=== PATIENT | female | born 1955 | race African-American/Black ===

== ENCOUNTER → 2018-04-13 | Day surgery (SDC) | payer OTHER ==
--- NOTE | 2018-04-16 14:55 | PATH ---
Surgical Pathology Report Patient Name: CAYETANO ALFARO [facility]. Rec. #: [id number] /Age/Gender: 1955 (Age: 62) / F Account: [id number] Location: [facility] RADIOLOGY U Taken: 04/13/2018 Received: 04/13/2018 Reported: 04/16/2018 Physicians: Mark Langford M.D. Specimen(s) Received RIGHT BREAST 1N2 CORE BIOPSY Clinical History Non-palpable lesion Ultrasound findings: Suspicious Final Diagnosis BREAST, RIGHT, 1N2, CORE BIOPSY: BENIGN BREAST TISSUE SHOWING FIBROCYSTIC CHANGES INCLUDING CYSTIC APOCRINE METAPLASIA, STROMAL FIBROSIS AND SCLEROSING ADENOSIS WITH FEW ASSOCIATED CALCIFICATIONS. Electronically Signed Regla Vazquez M.D. Gross Description Received in formalin, labeled "right breast core biopsy 1N2" are six cores of light interiano and yellow-interiano tissue, ranging from 1-1.5 cm in length with a diameter of 0.3 cm. Entirely submitted in two cassettes. Time to formalin fixation: > 1 minute Total formalin fixation time: Approximately 52 hours AE/04/13/2018 ebram/04/13/2018
--- NOTE | 2018-04-16 23:31 | OP ---
DATE OF OPERATION: 04/13/2018 PREOPERATIVE DIAGNOSIS: Right breast mass, 1 o'clock, 2 cm from the nipple. POSTOPERATIVE DIAGNOSIS: Right breast mass, 1 o'clock, 2 cm from the nipple. PROCEDURE: Right ultrasound guided core biopsy with clip placement. ANESTHESIA: Local. ATTENDING SURGEON: Timothy Guerra M.D. ESTIMATED BLOOD LOSS: Minimal. COMPLICATIONS: None. DESCRIPTION OF PROCEDURE: Patient was made aware of the risks and benefits of the procedure and consented. She was placed in supine position. Then under sterile conditions with 1% lidocaine for local anesthesia, a small maylin was made in the skin. Using a 10 gauge suction biopsy device, via lateral approach, under ultrasound guidance, multiple cores were obtained and submitted to pathology. Likewise under ultrasound guidance a bowtie clip was placed into the biopsy region. Well tolerated by the patient. Steri-Strips and a sterile bandage were applied. Will contact her with results. TIMOTHY GUERRA M.D. [id number]
== END | disposition home or self-care (01) ==
LOC: FRADUS-SUR 14:40
PROVIDERS: ATTEND Surgery
PROC: 0HBT3ZX Excision of Right Breast, Percutaneous Approach, Diagnostic (ICD-10-PCS; principal; 2018-04-13)
DX: N60.11 Diffuse cystic mastopathy of right breast (principal); N60.21 Fibroadenosis of right breast
CPT/HCPCS: 19083; 87899; 88305-TC; A4648

== ENCOUNTER 2018-09-06 05:25 | Day surgery (SDC) | payer OTHER ==
[2018-08-30 12:25] VITALS: BMI 21.2
[2018-09-06] MEDS ORDERED: MIDAZOLAM HCL 2 MG/2 ML SINGLE DOSE VIAL ONE (14:11)
[2018-09-06] MEDS ORDERED: LIDOCAINE HCL/PF 2% SDV 5ML VIAL ONE (14:11)
[2018-09-06] MEDS ORDERED: PROPOFOL 20 ML ONE (14:11)
--- NOTE | 2018-09-06 14:48 | HP ---
Admitting History and Physical - Admission Chief Complaint: Abnormal vaginal bleeding History of Present Illness: 63 yo Para 0, with personal h/o breast cancer, is pre op for D&C hysteroscopy. History Source: Patient Limitations to Obtaining History: No Limitations - Past Medical History Cardiovascular: Yes: HTN (fluctuating) Reproductive: Yes: Postmenopausal ...: No ...Para: 0 - Past Surgical History Past Surgical History: Yes: None - Smoking History Smoking history: Current every day smoker Have you smoked in the past 12 months: Yes Aproximately how many cigarettes per day: 5 - Alcohol/Substance Use Hx Alcohol Use: Yes (OCCASIONAL) Home Medications - Allergies Allergies/Adverse Reactions: Allergies Allergy/AdvReac Type Severity Reaction Status Date / Time No Known Allergies Allergy Verified 09/06/18 14:02 - Home Medications Home Medications: Ambulatory Orders Amlodipine Besylate [Norvasc -] 5 mg PO ASDIR 08/18/14 Cholecalciferol (Vitamin D3) [Vitamin D3 -] 400 unit PO DAILY 08/30/18 Gabapentin 600 mg PO HS 08/30/18 Ibuprofen 200 mg PO PRN PRN 08/30/18 Multivitamin [Multiple Vitamins] 1 each PO DAILY 08/30/18 Tamoxifen Citrate 20 mg PO DAILY 08/30/18 Family Disease History - Family Disease History Family History: Unremarkable Review of Systems - Review of Systems Constitutional: reports: No Symptoms Eyes: reports: No Symptoms HENT: reports: No Symptoms Neck: reports: No Symptoms Cardiovascular: reports: No Symptoms Respiratory: reports: No Symptoms Gastrointestinal: reports: No Symptoms Genitourinary: reports: No Symptoms Breasts: reports: No Symptoms Reported Musculoskeletal: reports: No Symptoms Integumentary: reports: No Symptoms Neurological: reports: No Symptoms Endocrine: reports: No Symptoms Hematology/Lymphatic: reports: No Symptoms Psychiatric: reports: No Symptoms Pain Intensity: 0 Physical Examination Vital Signs: Vital Signs Temperature 98.2 F 09/06/18 13:50 Pulse Rate 88 09/06/18 13:50 Respiratory Rate 18 09/06/18 13:50 Blood Pressure 106/63 09/06/18 13:50 O2 Sat by Pulse Oximetry (%) 100 09/06/18 13:50 Constitutional: Yes: Well Nourished Eyes: Yes: Conjunctiva Clear HENT: Yes: Atraumatic Neck: Yes: Supple Cardiovascular: Yes: Regular Rate and Rhythm Respiratory: Yes: Regular Gastrointestinal: Yes: Normal Bowel Sounds Breast(s): Yes: WNL Musculoskeletal: Yes: WNL Extremities: Yes: WNL Neurological: Yes: Alert, Oriented ...Motor Strength: WNL Psychiatric: Yes: Alert, Oriented Problem List - Problems (1) Post-menopausal bleeding Code(s): N95.0 - POSTMENOPAUSAL BLEEDING Assessment/Plan Postmenopausal bleeding Pre op for D&C Hysteroscopy Consent signed Anesthesia to see patient
--- NOTE | 2018-09-06 15:11 | OP ---
Operative Note - Note: Operative Date: 09/06/18 Pre-Operative Diagnosis: Endometrial polyp Operation: D&C Hysteroscopy Findings: Endometrial polyp Post-Operative Diagnosis: Same as Pre-op Surgeon: Nevaeh Villanueva Anesthesia: General Specimens Removed: Endometrial curettings Estimated Blood Loss (mls): 3
[2018-09-06] MEDS ORDERED: ONDANSETRON 4 MG/2 ML VIAL IVPUSH PRN (15:34)
[2018-09-06] MEDS ORDERED: oxyCODONE HCL 5 MG TABLET PO PRN (15:34)
[2018-09-06] MEDS ORDERED: LACTATED RINGERS SOLUTION 1,000 ML IV SCH (15:45)
--- NOTE | 2018-09-06 16:01 | OP ---
DATE OF OPERATION: 09/06/2018 PREOPERATIVE DIAGNOSIS: Postmenopausal bleeding with personal history of breast cancer and on tamoxifen. POSTOPERATIVE DIAGNOSIS: Postmenopausal bleeding with personal history of breast cancer and on tamoxifen. PROCEDURE: Dilation and curettage hysteroscopy. SURGEON: Nevaeh Villanueva MD ANESTHESIA: General. COMPLICATIONS: None. ESTIMATED BLOOD LOSS: Less than 5 mL. PROCEDURE: Patient was taken to the operating room, where general anesthesia was administered. Patient was then placed in lithotomy position. She was then prepped and draped in proper sterile fashion. A weighted speculum was placed in the vagina. The anterior lip of the cervix was grasped with a single-tooth tenaculum. Then the cervical os, which was found to be stenosed, was entered using the Rodriguez dilators, and then the 5-mm hysteroscope was then gently introduced into the uterine cavity. The cavity was visualized. Both ostia were visualized and there was evidence of some polyp on the posterior wall of the uterus. Then the hysteroscope was removed. A sharp curettage was then performed, and a second look with the hysteroscope was then undertaken. Then the instruments were removed. The patient was taken out of lithotomy position. She was taken to PACU in stable condition. PATHOLOGY: Endometrial curettings. Mark LESLIE/[id number] MTDD
[2018-09-06 17:55] VITALS: BP 127/72; PULSE 61; TEMP 97.2
--- NOTE | 2018-09-10 16:19 | PATH ---
Surgical Pathology Report Patient Name: CAYETANO ALFARO [facility]. Rec. #: [id number] /Age/Gender: 1955 (Age: 63) / F Account: [id number] Location: [facility] SURGICAL Taken: 09/06/2018 Received: 09/07/2018 Reported: 09/10/2018 Physicians: Nevaeh Villanueva M.D. Specimen(s) Received ENDOMETRIAL CURETTINGS Clinical History Postmenopausal bleeding Final Diagnosis ENDOMETRIAL CURETTINGS, DILATION AND CURETTAGE: POLYPOID FRAGMENTS OF ENDOMETRIUM AND HEMORRHAGIC STROMA SUGGESTIVE OF ENDOMETRIAL POLYP, ATROPHIC ENDOMETRIUM, ENDOCERVIX WITH CHRONIC INFLAMMATION AND MICROGLANDULAR HYPERPLASIA, AND BENIGN CERVICAL SQUAMOUS MUCOSA. Electronically Signed Adelina Lopez M.D. Gross Description Received in formalin labeled "endometrial curettings," is a 0.8 x 0.7 x 0.1 cm aggregate of interiano-brown soft tissue fragments. The formalin is filtered and the specimen is entirely submitted in one cassette. /09/07/2018 [facility]09/07/2018
== END 2018-09-06 17:30 | disposition home or self-care (01) ==
LOC: JASU-SURG 05:25
PROVIDERS: ATTEND Obstetrics & Gynecology
PROC: 0UDB7ZX Extraction of Endometrium, Via Natural or Artificial Opening, Diagnostic (ICD-10-PCS; principal; 2018-09-06 14:30)
PROC: 0UJD8ZZ Inspection of Uterus and Cervix, Via Natural or Artificial Opening Endoscopic (ICD-10-PCS; 2018-09-06 14:30)
DX: N95.0 Postmenopausal bleeding (principal); Z85.3 Personal history of malignant neoplasm of breast
CPT/HCPCS: 88305-TC; 94760

== ENCOUNTER 2020-04-18 20:40 | Inpatient (IN) | payer OTHER ==
--- NOTE | 2020-04-18 21:14 | PDOC ---
History of Present Illness - General Chief Complaint: Weakness Stated Complaint: POSSIBLE COVID-19 Time Seen by Provider: 04/18/20 21:13 - History of Present Illness Initial Comments: 64 YOF h/o breast cancer (on tamoxifen) presents w/ profound fatigue, shortness of breath, nausea, and abdominal pain of one month duration. Patient reports symptoms have been worsening over last month, she is unable to perform activities of daily living d/t fatigue. Also reports an intermittent cough and that food tastes unusual to her and her appetite is decreased. She denies CP, fever, chills, recent travel, or sick contacts. Constitutional: No Weight Change, No Fever, No Chills, No Night Sweats, + Fatigue, No Malaise ENT/Mouth: No Hearing Changes, No Ear Pain, No Nasal Congestion, No Sinus Pain, No Hoarseness, No sore throat, No Rhinorrhea, No Swallowing Difficulty Eyes: No Eye Pain, No Swelling, No Redness, No Foreign Body, No Discharge, No Vision Changes Cardiovascular: No Chest Pain, + SOB, No PND, No Dyspnea on Exertion, No Orthopnea, No Claudication, No Edema, No Palpitations Respiratory: + Cough, No Sputum, No Wheezing, No Smoke Exposure, No Dyspnea Gastrointestinal: + Nausea, No Vomiting, + Diarrhea, No Constipation, + Pain, No Heartburn, No Anorexia, No Dysphagia, No Hematochezia, No Melena, No Flatulence, No Jaundice Genitourinary: No Dysmenorrhea, No DUB, No Dyspareunia, No Dysuria, No Urinary Frequency, No Hematuria, No Urinary Incontinence, No Urgency, No Flank Pain, No Urinary Flow Changes, No Hesitancy Musculoskeletal: No Arthralgias, No Myalgias, No Joint Swelling, No Joint Stiffness, No Back Pain, No Neck Pain, No Injury History Skin: No Skin Lesions, No Pruritis, No Hair Changes, No Breast/Skin Changes, No Nipple Discharge Neuro: No Weakness, No Numbness, No Paresthesias, No Loss of Consciousness, No Syncope, No Dizziness, No Headache, No Coordination Changes, No Recent Falls Psych: No Anxiety/Panic, No Depression, No Insomnia, No Personality Changes, No Delusions, No Rumination, No SI/HI/AH/VH, No Social Issues, No Memory Changes, No Violence/Abuse Hx., No Eating Concerns Heme/Lymph: No Bruising, No Bleeding, No Transfusions History, No Lymphadenopathy Endocrine: No Polyuria, No Polydipsia, No Temperature Intolerance Past History - Medical History Allergies/Adverse Reactions: Allergies Allergy/AdvReac Type Severity Reaction Status Date / Time No Known Allergies Allergy Verified 04/18/20 21:01 Home Medications: Ambulatory Orders Amlodipine Besylate [Norvasc -] 5 mg PO ASDIR 08/18/14 Gabapentin 600 mg PO HS 08/30/18 Tamoxifen Citrate 20 mg PO DAILY 08/30/18 Anemia: No Asthma: No Cancer: Yes (breast, LEFT) Cardiac Disorders: No CVA: No COPD: No CHF: No Dementia: No Diabetes: No GI Disorders: No Disorders: No HTN: Yes Hypercholesterolemia: No Liver Disease: No Seizures: No Thyroid Disease: No - Surgical History Abdominal Surgery: No Appendectomy: No Cardiac Surgery: No Cholecystectomy: No Lung Surgery: No Neurologic Surgery: No Orthopedic Surgery: No - Reproductive History Is Patient Now?: No - Psycho-Social/Smoking History Smoking History: Never smoked Have you smoked in the past 12 months: No Number of Cigarettes Smoked Daily: 3 Information on smoking cessation initiated: No 'Breaking Loose' booklet given: 08/30/18 - Substance Abuse Hx (Audit-C & DAST Scrn) How often the patient has a drink containing alcohol: Never Score: In Men: 4 or > Positive; In Women: 3 or > Positive: 0 Screen Result (Pos requires Nsg. Audit-10AR): Negative In the last yr the pt used illegal drug/Rx for NonMed reason: No Score: Yes response is considered Positive: 0 Screen Result (Positive result requires Nsg. DAST-10): Negative *Physical Exam - Vital Signs Last Vital Signs Temp Pulse Resp BP Pulse Ox 98.3 F 114 H 20 120/67 100 04/18/20 21:01 04/18/20 21:01 04/18/20 21:01 04/18/20 21:04/18/20 21:01 - Physical Exam General Appearance: Yes: Nourished, Appropriately Dressed, Moderate Distress HEENT: positive: EOMI, CANDACE, Normal ENT Inspection Neck: positive: Trachea midline, Normal Thyroid Respiratory/Chest: positive: Lungs Clear, Normal Breath Sounds Cardiovascular: positive: Regular Rhythm, Regular Rate, S1, S2 Gastrointestinal/Abdominal: positive: Normal Bowel Sounds, Tender, Tenderness, Other (TTP in RUQ) 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
--- NOTE | 2020-04-18 21:18 | PDOC ---
Attending Attestation - Resident Resident Name: Shashank Fernandez - ED Attending Attestation I have performed the following: I have examined & evaluated the patient, The case was reviewed & discussed with the resident, I agree w/resident's findings & plan - HPI HPI: 04/18/20 22:35 Pt comes with months of worsening SOB; today pt cannot walk or exercise. 04/19/20 02:22 States that she has no appetite and that she has nbot been eating well for a FEW DAYS NOW. - Physicial Exam PE: 04/18/20 22:36 CP improves with lying down. Pt has SOB pt has normal heart rate Pt has no RUQ pain> epigasrtic pain. Pt has no rebound and no guarding NO flank pain Pt has midline back pain - Medical Decision Making 04/19/20 01:25 Patient Name: CAYETANO ALFARO THIS IS A PRELIMINARY REPORT DATE OF SERVICE: 2020-04-18 23:59:59 IMAGES: [id number] EXAM: CTA CHEST WITH CONTRAST and CT ABDOMEN AND PELVIS WITH CONTRAST CHEST Multiple small rounded densities lung bases with mostly subpleural/peripheral distribution, which can be seen with viral infection such as Covid-19, but cannot exclude alternative possibility of metastases. Correlate clinically. 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 No definite PE, but evaluation limited by artifact. No aortic dissection or aneurysm. Mediastinal lymph node enlargement, indeterminate. MInimal emphysematous changes. ABDOMEN/PELVIS Innumerable hypodense liver masses, some with rim enhancement, suspicious for metastases. Probable osteoblastic metastases spine and pelvis. 2.1 cm right ovarian cyst, advise ultrasound followup. Borderline bladder wall thickening, correlate with cystitis. Small ascites. Leiomyomatous uterus. No bowel obstruction or inflammation. No free air. No evidence for appendicitis. Unremarkable spleen, stomach, pancreas, kidneys. Thickened gallbladder wall without lumen dilatation. 04/19/20 01:48 Patient Name: CAYETANO ALFARO THIS IS A PRELIMINARY REPORT DATE OF SERVICE: 2020-04-19 00:34:23 IMAGES: 56 EXAM: ULTRASOUND ABDOMEN INCOMPLETE Multiple heterogeneous liver masses, consistent with findings on recent abdomen/pelvis CT. Gallbladder sludge and thickened wall. No visible stones. No acute cholecystitis. Unremarkable right kidney and visualized aorta, IVC and pancreas. Normal common duct diameter, 6 mm. 04/19/20 02:24 Pt understands that she likely has mets to her liver and spine and possibly the lungs,. Pt may also have COVID. We will send a covid culture I called Dr. Sharma who states that she is not coming to the hospital due to COVID risk to her own health. 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
--- OUTSIDE RECORDS SUMMARY | 2020-04-18 21:44 | XMS ---
:1955 [facility] Care Team Providers Name Role Phone FAITH Unavailable Unavailable UBALDO, TAUSEEF Unavailable Unavailable Re-disclosure Warning The records that you are about to access may contain information from federally- assisted alcohol or drug abuse programs. If such information is present, then the following federally mandated warning applies: This information has been disclosed to you from records protected by federal confidentiality rules (42 CFR part 2). The federal rules prohibit you from making any further disclosure of this information unless further disclosure is expressly permitted by the written consent of the person to whom it pertains or as otherwise permitted by 42 CFR part 2. A general authorization for the release of medical or other information is NOT sufficient for this purpose. The Federal rules restrict any use of the information to criminally investigate or prosecute any alcohol or drug abuse patient.The records that you are about to access may contain highly sensitive health information, the redisclosure of which is protected by Article 27-F of the [facility] Public Health law. If you continue you may haveaccess to information: Regarding HIV / AIDS; Provided by facilities licensed or operated by the [facility] Office of Mental Health; or Provided by the [facility] Office for People With Developmental Disabilities. If such information is present, then the following [facility] mandated warning applies: This information has been disclosed to you from confidential records which are protected by state law. State law prohibits you from making any further disclosure of this information without the specific written consent of the person to whom it pertains, or as otherwise permitted by law. Any unauthorized further disclosure in violation of state law may result in a fine or group home sentence or both. A general authorization for the release of medical or other information is NOT sufficient authorization for further disclosure. Encounters Encounter Providers Location Date Indications Data Source(s ) Outpatient Attender: UBALDO, 09[facility]24/2019 [facility]: [facility] ISLAMReferrer: EST Corpor[employer] UBALDO TAUSEEF C50.912 Outpatient Attender: RKSTANFORD, 06/25/2019 02:27:00 C50.912 [facility] TAUSEEFAdmitter: UBALDO, PM EST [facility] TAUSEEFReferrer: Tru CONNER orporation TAUSEEF C50.912 Outpatient Attender: UBALDO, 04/26/2019 09:43:00 C50.911 [facility] TAUSEEFAdmitter: UBALDO, PM EDT [facility] TAUSEEFReferrer: Tru CONNER orporation TAUSEEF C50.911 Outpatient Attender: UBALDO, 04/26/2019 11:00:00 C50.911 [facility] TAUSEAdmitter: UBALDO, AM EDT [facility] TAUSEEFReferrer: Tru CONNER orporation TAUSEEF C50.911 Insurance Providers Payer name Policy type Policy ID Covered Covered green party's Policy P leidy / Coverage green party ID relationship to [place] [facility] ormation type arreola [facility] MEDICAID [id number] HMO Problems, Conditions, and Diagnoses Code Display Name Description Problem Type Effective Data Sour ce(s) Dates C50.912 Malignant MALIGNANT Diagnosis 09/24/2019 [place] neoplasm of NEOPLASM OF 01:19:00 PM [facility] unspecified site UNSPECIFIED SITE EST Ca [employer] of left female OF LEFT FEMALE breast BREAST C50.911 Malignant MALIGNANT Diagnosis 04/26/2019 [place] neoplasm of NEOPLASM OF UNSP 11:00:00 AM [facility] unspecified site SITE OF RIGHT EDT Care [employer] of right female FEMALE BREAST breast Results ID Date Data Source Urinalysis 08/12/2018 01:25:00 PM [facility] Name Value Range Interpretation Description Data Sup porting Code Source(s) Document(s ) Color of Urine YELLOW <content [facility] styleCode="Tiffanie Joanna d">Color, Medical Urine Center </content>YELL OW <content styleCode="Leticia lics"> (YELLOW )</content> UNK CLEAR <content [facility] styleCode="Tiffanie Joanna d">Urine Medical Clarity Center </content>HAZY <content styleCode="Leticia lics"> (CLEAR )</content> Ketones NEGATIVE <content [facility] [Mass/volume] styleCode="Tiffanie Joanna in Urine by d">Urine Medical Test strip Ketone Center </content>NEGA TIVE MG/DL<content styleCode="Leticia lics"> (NEGATIVE MG/DL)</conten t> Glucose NEGATIVE <content [facility] [Mass/volume] styleCode="Tiffanie Joanna in Urine by d">Urine Medical Test strip Glucose Center </content>NEGA TIVE MG/DL<content styleCode="Leticia lics"> (NEGATIVE MG/DL)</conten t> UNK NEGATIVE <content [facility] styleCode="Tiffanie Joanna d">Urine Medical Bilirubin Center </content>NEGA TIVE <content styleCode="Leticia lics"> (NEGATIVE )</content> Specific 1.015-1.02 Below low normal <content [facility] gravity of 5 styleCode="Tiffanie Joanna Urine by Test d">Urine Medical strip Specific Center [place] </content><= 1.005 L<content styleCode="Leticia lics"> (1.015-1.025 )</content> pH of Urine by 4.5-8.0 <content Saint Test strip styleCode="Tiffanie Joanna d">Urine pH Medical </content>6.0 Center NM<content styleCode="Leticia lics"> (4.5-8.0 NM)</content> Urobilinogen 0.2-1.0 <content Saint [Units/volume] styleCode="Tiffanie Joanna in Urine by d">Urine Medical Test strip Urobilinogen Center </content>0.2 MG/DL<content styleCode="Leticia lics"> (0.2-1.0 MG/DL)</conten t> Protein NEGATIVE <content Saint [Mass/volume] styleCode="Tiffanie Joanna in Urine by d">Urine Medical Test strip Protein Center </content>NEGA TIVE MG/DL<content styleCode="Leticia lics"> (NEGATIVE MG/DL)</conten t> Hemoglobin NEGATIVE <content [facility] [Presence] in styleCode="Tiffanie Marhsall Urine by Test d">Urine Blood Medical strip </content>LARG Center E <content styleCode="Leticia lics"> (NEGATIVE )</content> UNK 0-3 <content Saint styleCode="Tiffanie Zunigas d">Urine White Medical Blood Cell Center </content>0-3 HPF<content styleCode="Leticia lics"> (0-3 HPF)</content> Leukocyte NEGATIVE <content Saint esterase styleCode="Tiffanie Marshall [Presence] in d">Urine Medical Urine by Test Leukocyte Center strip </content>NEGA TIVE <content styleCode="Leticia lics"> (NEGATIVE )</content> UNK 0-3 <content Saint styleCode="Tiffanie Zunigas d">Urine Red Medical Blood Cell Center </content>5 - 10 HPF<content styleCode="Leticia lics"> (0-3 HPF)</content> Nitrite NEGATIVE <content Saint [Presence] in styleCode="Tiffanie Marshall Urine by Test d">Urine Medical strip Nitrite Center </content>NEGA TIVE <content styleCode="Leticia lics"> (NEGATIVE )</content> UNK <content [facility] styleCode="Tiffanie Joanna d">Epithelial Medical Cell Center </content>2-5 LPF (Reference Range: not available)<br/ > UNK NEGATIVE <content Saint styleCode="Tiffanie Joanna d">Urine Medical Bacteria Center </content>FEW HPF<content styleCode="Leticia lics"> (NEGATIVE HPF)</content> UNK NONE SEEN <content Saint styleCode="[facility] Joanna d">Urine Mucus Medical </content>FEW Center LPF<content styleCode="Leticia lics"> (NONE SEEN LPF)</content> ID Date Data Source HematologyRou 08/12/2018 01:25:00 PM EST [facility] Name Value Range Interpretation Description Data Sup porting Code Source(s) Document(s ) Leukocytes 4.4-11.0 Below low normal <content Saint [#/volume] in styleCode="Bold Joanna Blood by ">White Blood Medical Automated count Cell Count Center </content>4.36 KCUMM L<content styleCode="Ital ics"> (4.4-11.0 KCUMM)</content > Erythrocytes 4.0-5.1 <content Saint [#/volume] in styleCode="Bold Joanna Blood by ">Red Blood Medical Automated count Cell Count Center </content>4.12 MCUMM<content styleCode="Ital ics"> (4.0-5.1 MCUMM)</content > Hematocrit 36.0-46. <content Saint [Volume 0 styleCode="Bold Joanna Fraction] of ">Hematocrit Medical Blood by </content>37.9 Center Automated count %<content styleCode="Ital ics"> (36.0-46.0 %)</content> Hemoglobin 12.3-16. <content Saint [Mass/volume] in 0 styleCode="Bold Joanna Blood ">Hemoglobin Medical </content>12.6 Center G/DL<content styleCode="Ital ics"> (12.3-16.0 G/DL)</content> Erythrocyte mean 26.0-34. <content [facility] corpuscular 0 styleCode="Bold Joanna hemoglobin ">Mean Medical [Entitic mass] Corposcular Center by Automated Hemoglobin count </content>30.6 PG<content styleCode="Ital ics"> (26.0-34.0 PG)</content> Erythrocyte mean 80.0-100 <content [facility] corpuscular .0 styleCode="Bold Joanna volume [Entitic ">Mean Medical volume] by Corpuscular Center Automated count Volume </content>92.0 FL<content styleCode="Ital ics"> (80.0-100.0 FL)</content> Erythrocyte 11.5-14. Above high <content Saint distribution 5 normal styleCode="Bold Joanna width [Ratio] by ">Red Cell Medical Automated count Distribution Center Width </content>15.9 % H<content styleCode="Ital ics"> (11.5-14.5 %)</content> Erythrocyte mean 32.0-37. <content [facility] corpuscular 0 styleCode="Bold Joanna hemoglobin ">Mean Corpus. Medical concentration Hgb Center [Mass/volume] by Concentration Automated count (MCHC) </content>33.2 G/DL<content styleCode="Ital ics"> (32.0-37.0 G/DL)</content> Platelets 130-400 <content Saint [#/volume] in styleCode="Bold Joanna Blood by ">Platelet Medical Automated count Count Center </content>181 KCUMM<content styleCode="Ital ics"> (130-400 KCUMM)</content > UNK 1.6-7.3 <content Saint styleCode="Bold Joanna ">Neutrophil Medical Count Center </content>2.44 KCUMM<content styleCode="Ital ics"> (1.6-7.3 KCUMM)</content > Platelet mean 8.0-11.0 <content Saint volume [Entitic styleCode="Bold Joanna volume] in Blood ">Mean Platelet Medical by Automated Volume Center count </content>10.3 FL<content styleCode="Ital ics"> (8.0-11.0 FL)</content> Lymphocytes 24.0-44. <content Saint [#/volume] in 0 styleCode="Bold Joanna Blood by ">Lymphocyte Medical Automated count </content>33.5 Center %<content styleCode="Ital ics"> (24.0-44.0 %)</content> Neutrophils 36-66 <content Saint [#/volume] in styleCode="Bold Joanna Blood by ">Neutrophil Medical Automated count </content>55.9 Center %<content styleCode="Ital ics"> (36-66 %)</content> Eosinophils 0-5.0 <content Saint [#/volume] in styleCode="Bold Joanna Blood by ">Eosinophil Medical Automated count </content>0.2 Center %<content styleCode="Ital ics"> (0-5.0 %)</content> Monocytes 3.0-10.0 <content Saint [#/volume] in styleCode="Bold Joanna Blood by ">Monocyte Medical Automated count </content>9.4 Center %<content styleCode="Ital ics"> (3.0-10.0 %)</content> UNK 1.0-4.8 <content Saint styleCode="Bold Joanna ">Lymphocyte Medical Count Center </content>1.46 KCUMM<content styleCode="Ital ics"> (1.0-4.8 KCUMM)</content > UNK 0.2-0.9 <content Saint styleCode="Bold Joanna ">Monocyte Medical Count Center </content>0.41 KCUMM<content styleCode="Ital ics"> (0.2-0.9 KCUMM)</content > UNK 0 <content Saint styleCode="Bold Joanna ">Nucleated Red Medical Blood Cell Center </content>0.0 /100<content styleCode="Ital ics"> (0 /100)</content> UNK 0.0-0.3 <content Saint styleCode="Bold Joanna ">Basophil Medical Count Center </content>0.02 KCUMM<content styleCode="Ital ics"> (0.0-0.3 KCUMM)</content > Basophils 0.0-1.0 <content Saint [#/volume] in styleCode="Bold Joanna Blood by ">Basophil Medical Automated count </content>0.5 Center %<content styleCode="Ital ics"> (0.0-1.0 %)</content> UNK 0.0-0.6 <content [facility] styleCode="Bold Joanna ">Eosinophil Medical Count Center </content>0.01 KCUMM<content styleCode="Ital ics"> (0.0-0.6 KCUMM)</content > UNK < 1 <content Saint styleCode="Bold Joanna ">Immature Medical Granulocyte Center Ratio </content>0.5 %<content styleCode="Ital ics"> (< 1 %)</content> UNK 0.0 <content Saint styleCode="Bold Joanna ">Nucleated Red Medical Blood Cell Center Count </content>0.00 KCUMM<content styleCode="Ital ics"> (0.0 KCUMM)</content > UNK 0-0.1 <content Saint styleCode="Bold Joanna ">Immature Medical Granulocyte Center Count </content>0.02 KCUMM<content styleCode="Ital ics"> (0-0.1 KCUMM)</content > ID Date Data Source GFR(Creatinine) 08/12/2018 01:25:00 PM [facility] Name Value Range Interpretation Code Description Data Jesenia rce(s) Supporting Document(s ) UNK > 60 <content [facility] styleCode="Bold"> Medical Cent er EGFR </content>82 GFR<content styleCode="Italic s"> (> 60 GFR)</content> ID Date Data Source BMP 08/12/2018 01:25:00 PM [facility] Name Value Range Interpretation Description Data Sup porting Code Source(s) Document(s ) Sodium 137-145 <content Saint [Moles/volume] styleCode="Tiffanie Joanna in Serum or d">Sodium Medical Plasma </content>142 Center MEQ/L<content styleCode="Leticia lics"> (137-145 MEQ/L)</conten t> Potassium 3.5-5.3 <content Saint [Moles/volume] styleCode="Tiffanie Joanna in Serum or d">Potassium Medical Plasma </content>4.1 Center MEQ/L<content styleCode="Leticia lics"> (3.5-5.3 MEQ/L)</conten t> Carbon 22-30 <content Saint dioxide, total styleCode="Tiffanie Joanna [Moles/volume] d">Carbon Medical in Serum or Dioxide Center Plasma </content>29 MEQ/L<content styleCode="Leticia lics"> (22-30 MEQ/L)</conten t> Creatinine 0.5-1.3 <content [facility] [Mass/volume] styleCode="Tiffanie Joanna in Serum or d">Creatinine Medical Plasma </content>0.9 Center MG/DL<content styleCode="Leticia lics"> (0.5-1.3 MG/DL)</conten t> UNK 7-17 <content Saint styleCode="Tiffanie Joanna d">BUN Medical </content>11 Center MG/DL<content styleCode="Leticia lics"> (7-17 MG/DL)</conten t> Chloride 98-107 <content [facility] [Moles/volume] styleCode="Tiffanie Joanna in Serum or d">Chloride Medical Plasma </content>105 Center MEQ/L<content styleCode="Leticia lics"> (98-107 MEQ/L)</conten t> Glucose 74-106 <content [facility] [Mass/volume] styleCode="Tiffanie Joanna in Serum or d">Glucose Medical Plasma </content>95 Center MG/DL<content styleCode="Leticia lics"> (74-106 MG/DL)</conten t> Calcium 8.4-10.2 <content [facility] [Mass/volume] styleCode="Tiffanie Joanna in Serum or d">Calcium Medical Plasma </content>9.6 Center MG/DL<content styleCode="Leticia lics"> (8.4-10.2 MG/DL)</conten t> UNK > 60 <content Saint styleCode="Tiffanie Joanna d">EGFR Medical </content>82 Center GFR<content styleCode="Leticia lics"> (> 60 GFR)</content> Procedure Social History Code Duration Value Status Description Data Source(s ) Smoking 08/12/2018 Denies Ever completed Denies Ever Smoked [facility] 12:57:00 PM EST Smoked Medical C enter Smoking 08/12/2018 Denies Ever completed Denies Ever Smoked [facility] 11:20:00 AM EST Smoked Medical C enter Vital Signs ID Date Data Source UNK Name Value Range Interpretation Code Description Data Source(s) Body temperature 37.742885 37.119346 [facility] Respiratory rate 20 /min 20 /min [facility] Oxygen saturation 99 % 99 % [facility] Slava griffin in Arterial blood Medical Center by Pulse oximetry Heart rate 77 /min 77 /min [facility] Diastolic blood 72 mm[Hg] 72 mm[Hg] [facility] pressure Medical Center Systolic blood 127 mm[Hg] 127 mm[Hg] [facility] pressure Medical Center Body temperature 37.746093 37.205305 [facility] Respiratory rate 17 /min 17 /min [facility] Oxygen saturation 98 % 98 % [facility] Slava griffin in Arterial blood Medical Center by Pulse oximetry Heart rate 87 /min 87 /min [facility] Body height 170.249415 170.073507 cm [facility] Diastolic blood 59 mm[Hg] 59 mm[Hg] [facility] pressure [facility] Center Systolic blood 128 mm[Hg] 128 mm[Hg] [facility] pressure [facility]
[2020-04-18] MEDS ORDERED: ACETAMINOPHEN 1000 MG/100 ML VIAL (NON FORMULARY) IVPB ONE (22:28)
[2020-04-18] MEDS ORDERED: ACETAMINOPHEN INJECTION 100 ML IVPB ONE (22:32)
[2020-04-18] MEDS ORDERED: KETOROLAC TROMETHAMINE 30 MG/1 ML VIAL IVPUSH ONE (22:36)
[2020-04-18 22:38] LABS: BASO % 0.7 % (0-2.0); EOS % 0.2 % (0-4.5); HEMATOCRIT 40.2 % (32.4-45.2); HEMOGLOBIN 13.8 GM/dL (10.7-15.3); LYMPH % 13.7 % (8-40); MCH 31.1 pg (25.7-33.7); MCHC 34.2 g/dl (32.0-36.0); MEAN PLT VOLUME 9.3 fl (7.5-11.1); MONO % 7.8 % (3.8-10.2); NEUT % 77.6 % (42.8-82.8); PLATELET COUNT 164 K/MM3 (134-434); RBC 4.42 M/mm3 (3.60-5.2); WHITE BLOOD COUNT 9.1 K/mm3 (4.0-10.0)
[2020-04-18] MEDS ORDERED: KETOROLAC TROMETHAMINE 30 MG/1 ML VIAL ONE (22:42)
[2020-04-18 22:56] LABS: INR 1.16 (0.83-1.09); PROTHROMBIN TIME (PATIENT) 13.7 SEC (9.7-13.0)
[2020-04-18 23:06] LABS: ALK PHOS 526 U/L (45-117); ANION GAP 6 MMOL/L (8-16); BILIRUBIN,TOTAL 1.1 mg/dL (0.2-1); CALCIUM 8.9 mg/dL (8.5-10.1); CHLORIDE 101 mmol/L (98-107); CO2 30 mmol/L (21-32); GLUCOSE,RANDOM 105 mg/dL (74-106); POTASSIUM 3.6 mmol/L (3.5-5.1); SGOT/AST 211 U/L (15-37); SGPT/ALT 63 U/L (13-61); SODIUM 137 mmol/L (136-145); TOT PROT 7.6 g/dl (6.4-8.2)
[2020-04-18 23:29] LABS: ALBUMIN 3.4 g/dl (3.4-5.0); BLOOD UREA NITROGEN 10.9 mg/dL (7-18); LIPASE 119 U/L (73-393)
--- NOTE | 2020-04-19 02:05 | PN ---
Teaching Attending Note Name of Resident: Efrain Gee ATTENDING PHYSICIAN STATEMENT I saw and evaluated the patient. I reviewed the resident's note and discussed the case with the resident. I agree with the resident's findings and plan as documented. SUBJECTIVE: Patient is a 64 year old woman with a PMH of Left breast ductal carcinoma (11/2013; s/p wide excision, chemo/radiotherapy;now on Tamoxifen), HTN (not on medication) and Cervical dysplasia who presents with profound fatigue, shortness of breath, nausea, and abdominal pain of one month duration. Patient reports symptoms have been worsening over last month. She is unable to perform activities of daily living due to fatigue. Also reports an intermittent cough and that food tastes unusual to her and her appetite is decreased. Patient denies chest pain, headache, palpitations, dizziness, fever, chills, vomiting, diarrhea, constipation, dysuria, frequency, urgency, melena, hematochezia or hematuria. Denies alcohol, tobacco or illicit drug use. Former smoker. No sick contacts or recent travels. Family history is unremarkable. OBJECTIVE: Alert Vital Signs Period Temp Pulse Resp BP Sys/Vargas Pulse Ox Last 24 Hr 98.1 F-98.3 F 96-114 18-20 102-120/67-76 96-100 HEENT: No Jaundice, eye redness or discharge, PERRLA, EOMI. Normocephalic, atraumatic. External ears are normal and hearing is grossly intact. No nasal discharge. Neck: Supple, nontender. No palpable adenopathy or thyromegaly. No JVD Chest: Bilateral breast masses (R>L). Good effort. Clear to auscultation and percussion. Heart: Regular. No S3, rub or murmur Abdomen: Not distended, soft, RUQ tenderness and no HSM. No rebound or guarding. Normal bowel sounds. Ext: Peripheral pulses intact. No leg edema. Skin: Warm and dry. No petechiae, rash or ecchymosis. Neuro: Alert. Oriented x3. CN 2-12 grossly intact. Sensation grossly intact in all four extremities and DTR are symmetric. Psych: Appropriate mood and affect. Good insight. Home Medications Medication Instructions Recorded Amlodipine Besylate [Norvasc -] 5 mg PO ASDIR 08/18/14 Gabapentin 600 mg PO HS 08/30/18 Tamoxifen Citrate 20 mg PO DAILY 08/30/18 Abnormal Lab Results 04/18/20 04/18/20 04/18/20 22:25 22:25 22:25 RDW 16.0 H PT with INR 13.70 H INR 1.16 H PTT (Actin FS) 37.0 H Anion Gap 6 L Total Bilirubin 1.1 H AST 211 H ALT 63 H Alkaline Phosphatase 526 H Creatine Kinase 368 H B-Natriuretic Peptide 04/18/20 22:25 RDW PT with INR INR PTT (Actin FS) Anion Gap Total Bilirubin AST ALT Alkaline Phosphatase Creatine Kinase B-Natriuretic Peptide 169.0 H Current Medications Generic Name Dose Route Start Last Admin Trade Name Freq PRN Reason Stop Dose Admin Enoxaparin Sodium 40 mg 04/19/20 10:00 Lovenox - SQ DAILY TIFFANY Morphine Sulfate 1 mg 04/19/20 05:17 Morphine Sulfate IVPUSH Q4H PRN PAIN LEVEL 4 - 6 ASSESSMENT AND PLAN: 1. Metastasis from ?Breast cancer - CTA chest/thorax report - Multiple small rounded densities lung bases with mostly subpleural/peripheral distribution, which can be seen with viral infection such as Covid-19, but cannot exclude alternative possibility of metastases. Correlate clinically. 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 No definite PE, but evaluation limited by artifact. No aortic dissection or aneurysm. Mediastinal lymph node enlargement, indeterminate. Minimal emphysematous changes. CT abdomen/pelvis with IV contrast report - Innumerable hypodense liver masses, some with rim enhancement, suspicious for metastases. Probable osteoblastic metastases spine and pelvis. 2.1 cm right ovarian cyst, advise ultrasound followup. Borderline bladder wall thickening, correlate with cystitis. Small ascites. Leiomyomatous uterus. No bowel obstruction or inflammation. No free air. No evidence for appendicitis. Unremarkable spleen, stomach, pancreas, kidneys. Thickened gallbladder wall without lumen dilatation. Ultrasound of abdomen report - Multiple heterogeneous liver masses, consistent with findings on recent abdomen/pelvis CT. Gallbladder sludge and thickened wall. No visible stones. No acute cholecystitis. Unremarkable right kidney and visualized aorta, IVC and pancreas. Normal common duct diameter, 6 mm. EKG shows NSR at 89/minute and QTc 459 with no significant acute ischemic ST-T wave changes. Initial troponin is negative. Will get urinalysis STAT to rule out infection, trend LFTs, get hepatitis profile, avoid hepatotoxic drugs, consult Oncology, consult Interventional radiology for biopsy and use low dose Morphine for pain control. Viral testing for COVID-19 ordered and patient placed on airborne, droplet and contact isolation. 2. DVT prophylaxis - Lovenox 40 mg SQ q 24 hours. 3. Advance directives - Full code
--- OUTSIDE RECORDS SUMMARY | 2020-04-19 02:50 | XMS ---
:1955 Author Organization [facility] Care Team Providers Name Role Phone BUDDHISM Unavailable Unavailable UBALDO TAUSEEF Unavailable Unavailable Re-disclosure Warning The records [...] is protected by Article 27-F of the [facility] Public Health law. If you continue you may haveaccess to information: Regarding HIV / AIDS; Provided by facilities licensed or operated by the [facility] Office of Mental Health; or Provided by the [facility] Office for People With Developmental Disabilities. If such information is present, then the following [facility] mandated warning applies: This information has been [...] law may result in a fine or fdc sentence or both. A general authorization for the release of medical or other information is NOT sufficient authorization for further disclosure. Encounters Encounter Providers Location Date Indications Data Source(s ) Outpatient Attender: STANFORD, 09/24/2019 C50.912 [facility] TAUSEAdmitter: 01:19:00 PM Health Care ISLAMReferrer: EST Corporatio n UBALDO, TAUSEEF C50.912 Outpatient Attender: UBALDO, 06/25/2019 02:27:00 C50.912 [facility] TAUSEEFAdmitter: AHMED, PM EST H ealt Care TAUSEEFReferrer: Tru CONNER orporation TAUSEEF C50.912 Outpatient Attender: MED, 04/26/2019 09:43:00 C50.911 [facility] TAUSEAdmitter: AHSTANFORD, PM EDT H [facility] TAUSEEFReferrer: Tru CONNER orporation TAUSEEF C50.911 Outpatient Attender: STANFORD, 04/26/2019 11:00:00 C50.911 [facility] TAUSEEFAdmitter: UBALDO, AM EDT H [facility] Care TAUSEEFReferrer: Tru CONNER orporation TAUSEEF C50.911 Insurance Providers Payer name Policy type Policy ID Covered Covered constitution party's Policy P leidy / Coverage constitution party ID relationship to Arreola Inf ormation type arreola P MEDICAID [id number] O Problems, Conditions, and Diagnoses Code Display Name Description Problem Type Effective Data Sour ce(s) Dates C50.912 Malignant MALIGNANT Diagnosis 09/24/2019 Telephone neoplasm of NEOPLASM OF 01:19:00 PM [facility] unspecified site UNSPECIFIED SITE EST Ca re Corporation of left female OF LEFT FEMALE breast BREAST C50.911 Malignant MALIGNANT Diagnosis 04/26/2019 Telephone neoplasm of NEOPLASM OF UNSP 11:00:00 AM [facility] unspecified site SITE OF RIGHT EDT Care Corporation of right female FEMALE BREAST breast Results ID Date Data Source Urinalysis 08/12/2018 01:25:00 PM [facility] Name Value Range Interpretation Description Data Sup porting Code Source(s) Document(s ) Color of Urine YELLOW <content Saint styleCode="Tiffanie Marshall d">Color, Medical Urine Center </content>YELL OW <content [...] normal <content Saint gravity of 5 styleCode="Tiffanie Zunigas Urine by Test d">Urine Medical strip Specific Center [place] </content><= 1.005 L<content styleCode="Leticia lics"> (1.015-1.025 )</content> pH of Urine by 4.5-8.0 <content Saint Test strip styleCode="Tiffanie Jonana d">Urine pH Medical </content>6.0 Center NM<content styleCode="Leticia [...] Hemoglobin NEGATIVE <content Saint [Presence] in styleCode="Tiffanie Marshall Urine by Test d">Urine Blood Medical strip </content>LARG Center E <content styleCode="Leticia lics"> (NEGATIVE )</content> UNK 0-3 <content Saint styleCode="Tiffanie Joanna d">Urine White Medical Blood Cell Center </content>0-3 [...] (NEGATIVE HPF)</content> UNK NONE SEEN <content Saint styleCode="Tiffanie Joanna d">Urine Mucus Medical </content>FEW Center LPF<content styleCode="Leticia lics"> (NONE SEEN LPF)</content> ID Date Data Source HematologyRou 08/12/2018 01:25:00 PM EST [facility] Name Value Range Interpretation Description Data Sup [...] Date Data Source GFR(Creatinine) 08/12/2018 01:25:00 PM [facility] Name Value Range Interpretation Code Description Data Jesenia rce(s) Supporting Document(s ) UNK > 60 <content [facility] styleCode="Bold"> Medical Cent er EGFR </content>82 GFR<content styleCode="Italic s"> (> 60 GFR)</content> ID Date Data Source BMP 08/12/2018 01:25:00 PM [facility] Name Value Range Interpretation Description Data [...] 08/12/2018 Denies Ever completed Denies Ever Smoked [facility] 12:57:00 PM EST Smoked Medical C enter Smoking 08/12/2018 Denies Ever completed Denies Ever Smoked [facility] 11:20:00 AM EST [facility] enter Vital Signs ID Date Data Source UNK Name Value Range Interpretation Code Description Data Source(s) Body temperature 37.188405 37.818032 [facility] Respiratory rate 20 /min 20 /min [facility] Oxygen saturation 99 % 99 % [facility] Slava osephs in Arterial blood Medical Center by Pulse oximetry Heart rate 77 /min 77 /min [facility] Diastolic blood 72 mm[Hg] 72 mm[Hg] [facility] pressure Medical Center Systolic blood 127 mm[Hg] 127 mm[Hg] [facility] pressure [facility] Body temperature 37.521625 37.848127 [facility] Respiratory rate 17 /min 17 /min [facility] Oxygen saturation 98 % 98 % [facility] ema in Arterial blood Medical Center by Pulse oximetry Heart rate 87 /min 87 /min [facility] Body height 170.820985 170.092890 cm [facility] Diastolic blood 59 mm[Hg] 59 mm[Hg] [facility] pressure [facility] Systolic blood 128 mm[Hg] 128 mm[Hg] [facility]
--- NOTE | 2020-04-19 05:33 | HP ---
CHIEF COMPLAINT: Shortness of breath and Fatigue PCP: Miguelito Negron, HISTORY OF PRESENT ILLNESS: 64 yo F w/ PMHx of Left sided breast CA (s/p Lumpectomy, rads, chemo-04/2014), HTN, HLD, Anemia and remote hx of PID, presents to the ED due to increasing shortness of breath, fatigue, loss of appetite, weight loss (7lb 1 mos), abdominal pain and back pain w/ associated LE numbness over the last 1.5 months. Patient states that recently she has been unable to complete her ADLs 2/2 her increasing numbness in her legs and is often required to stay laying down in bed to alleviate her pulmonary and pain symptoms. Additionally she endorses a non- productive cough and changes in smell/taste. She states she is still able to urinate and have bowel movements however. Of note, patient was lost to followup with her normally scheduled appointments for Br CA, 2/2 Covid. ROS was negative for F/C, changes in vision, CP, current SoB, N/V/D, or difficulty swallowing ER course was notable for: (1)CTA CHEST w/ Contrast and CT Abd/Pelv: Chest: Multiple small rounded densities lung bases with mostly subpleural/peripheral distribution, which can be seen with viral infection such as Covid-19, but cannot exclude alternative possibility of metastases. 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 Abdomen/Pelvis: Innumerable hypodense liver masses, some with rim enhancement, suspicious for metastases. Probable osteoblastic metastases spine and pelvis. 2.1 cm right ovarian cyst, advise ultrasound followup. Borderline bladder wall thickening, correlate with cystitis. Small ascites. Leiomyomatous uterus. No bowel obstruction or inflammation. No free air. No evidence for appendicitis. Thickened gallbladder wall without lumen dilatation. (2.)Ultrasound Abdomen Multiple heterogeneous liver masses, consistent with findings on recent abdomen/pelvis CT. Gallbladder sludge and thickened wall. No visible stones. No acute cholecystitis. Normal common duct diameter, 6 mm. Recent Travel: None PAST MEDICAL HISTORY: -As above PAST SURGICAL HISTORY: -As Above Social History: Smokin year hx Alcohol: Socially Drugs: Marijuana Living: Lives alone Allergies No Known Allergies Allergy (Verified 04/18/20 21:01) HOME MEDICATIONS: Home Medications Medication Instructions Recorded Amlodipine Besylate [Norvasc -] 5 mg PO ASDIR 08/18/14 Gabapentin 600 mg PO HS 08/30/18 Tamoxifen Citrate 20 mg PO DAILY 08/30/18 REVIEW OF SYSTEMS CONSTITUTIONAL: Absent: fever, chills, diaphoresis HEENT: Absent: rhinorrhea, nasal congestion, throat pain, throat swelling, difficulty swallowing, mouth swelling, ear pain, eye pain, visual changes CARDIOVASCULAR: Absent: chest pain, syncope, palpitations, irregular heart rate, lightheadedness, peripheral edema RESPIRATORY: Absent: cough, dyspnea with exertion, orthopnea, wheezing, stridor, hemoptysis GASTROINTESTINAL: Absent: abdominal distension, nausea, vomiting, diarrhea, constipation, melena, hematochezia GENITOURINARY: Absent: dysuria, frequency, urgency, hesitancy, hematuria, flank pain, genital pain MUSCULOSKELETAL: Absent: myalgia, joint swelling, neck pain SKIN: Absent: rash, itching, pallor HEMATOLOGIC/IMMUNOLOGIC: Absent: easy bleeding, easy bruising, lymphadenopathy ENDOCRINE: Absent: unexplained weight gain NEUROLOGIC: Absent: headache, dizziness, unsteady gait, seizure, mental status changes, bladder or bowel incontinence PSYCHIATRIC: Absent: anxiety, depression, suicidal or homicidal ideation, hallucinations. PHYSICAL EXAMINATION Vital Signs - 24 hr 04/18/20 04/18/20 04/19/20 21:01 21:18 01:36 Temperature 98.3 F 98.1 F Pulse Rate 114 H Pulse Rate [ 96 H Left Radial] Respiratory 20 18 Rate Blood Pressure 120/67 Blood Pressure 102/76 [Right Arm] O2 Sat by Pulse 100 100 96 Oximetry (%) GENERAL: Awake, alert, and fully oriented, in no acute distress. HEAD: Normal with no signs of trauma. EYES: Scleral Icterus, Pupils equal, round and reactive to light, extraocular movements intact. EARS, NOSE, THROAT: Ears normal, nares patent, oropharynx clear without exudates. Dry mucous membranes. NECK: Normal range of motion, supple without lymphadenopathy, JVD, or masses. LUNGS: Breath sounds equal, clear to auscultation bilaterally. No wheezes, and no crackles. No accessory muscle use. HEART: Regular rate and rhythm, normal S1 and S2 without murmur, rub or gallop. CHEST: R and L breast masses felt in the 6Oclock position, No axillary lymphadenopathy. ABDOMEN: Soft, mild suprapubic tenderness, normoactive bowel sounds, no guarding. MUSCULOSKELETAL: Normal range of motion at all joints. No bony deformities or tenderness. Strength 5/5. No CVA tenderness. UPPER EXTREMITIES: 2+ pulses, warm, well-perfused. No cyanosis. No clubbing. LOWER EXTREMITIES: 2+ pulses, warm, well-perfused. No calf tenderness. NEUROLOGICAL: Normal speech. Gait not tested. PSYCHIATRIC: Cooperative. Good eye contact. Appropriate mood and affect. SKIN: Warm, dry, normal turgor, no rashes or lesions noted Laboratory Results - last 24 hr 04/18/20 04/18/20 04/18/20 22:25 22:25 22:25 WBC 9.1 RBC 4.42 Hgb 13.8 Hct 40.2 MCV 91.0 MCH 31.1 MCHC 34.2 RDW 16.0 H Plt Count 164 MPV 9.3 Absolute Neuts (auto) 7.1 Neutrophils % 77.6 D Lymphocytes % 13.7 D Monocytes % 7.8 Eosinophils % 0.2 Basophils % 0.7 Nucleated RBC % 0 PT with INR 13.70 H INR 1.16 H PTT (Actin FS) 37.0 H Sodium 137 Potassium 3.6 Chloride 101 Carbon Dioxide 30 Anion Gap 6 L BUN 10.9 Creatinine 1.0 Est GFR (CKD-EPI)AfAm 69.44 Est GFR (CKD-EPI)NonAf 59.91 POC Glucometer Random Glucose 105 Calcium 8.9 Total Bilirubin 1.1 H AST 211 H ALT 63 H Alkaline Phosphatase 526 H Creatine Kinase 368 H Creatine Kinase Index 0.3 CK-MB (CK-2) 1.2 Troponin I < 0.02 B-Natriuretic Peptide Total Protein 7.6 Albumin 3.4 Lipase 119 Anti-A Titer Blood Type Antibody Screen 04/18/20 04/18/20 04/18/20 22:25 22:25 22:57 WBC RBC Hgb Hct MCV MCH MCHC RDW Plt Count MPV Absolute Neuts (auto) Neutrophils % Lymphocytes % Monocytes % Eosinophils % Basophils % Nucleated RBC % PT with INR INR PTT (Actin FS) Sodium Potassium Chloride Carbon Dioxide Anion Gap BUN Creatinine Est GFR (CKD-EPI)AfAm Est GFR (CKD-EPI)NonAf POC Glucometer Random Glucose Calcium Total Bilirubin AST ALT Alkaline Phosphatase Creatine Kinase Creatine Kinase Index CK-MB (CK-2) Troponin I B-Natriuretic Peptide 169.0 H Total Protein Albumin Lipase Anti-A Titer Cancelled Blood Type Cancelled O POSITIVE Antibody Screen Cancelled Negative 04/18/20 23:17 WBC RBC Hgb Hct MCV MCH MCHC RDW Plt Count MPV Absolute Neuts (auto) Neutrophils % Lymphocytes % Monocytes % Eosinophils % Basophils % Nucleated RBC % PT with INR INR PTT (Actin FS) Sodium Potassium Chloride Carbon Dioxide Anion Gap BUN Creatinine Est GFR (CKD-EPI)AfAm Est GFR (CKD-EPI)NonAf POC Glucometer 120 Random Glucose Calcium Total Bilirubin AST ALT Alkaline Phosphatase Creatine Kinase Creatine Kinase Index CK-MB (CK-2) Troponin I B-Natriuretic Peptide Total Protein Albumin Lipase Anti-A Titer Blood Type Antibody Screen Active Medications Generic Name Dose Route Start Last Admin Trade Name Freq PRN Reason Stop Dose Admin Amlodipine Besylate 5 mg 04/19/20 10:00 Norvasc - PO DAILY ON LICENSE OF [facility] Enoxaparin Sodium 40 mg 04/19/20 10:00 Lovenox - SQ DAILY ON LICENSE OF [facility] Gabapentin 600 mg 04/19/20 22:00 Neurontin - PO HS ON LICENSE OF [facility] Morphine Sulfate 1 mg 04/19/20 05:17 04/19/20 08:47 Morphine Sulfate IVPUSH 1 mg Q4H PRN Administration PAIN LEVEL 4 - 6 Tamoxifen Citrate 20 mg 04/19/20 10:00 Tamoxifen Citrate PO DAILY ON LICENSE OF [facility] ASSESSMENT/PLAN: 64 yo F w/ PMHx of Left sided breast CA (s/p Lumpectomy, rads, chemo-04/2014), HTN, HLD, Anemia and remote hx of PID, presents to the ED due to increasing shortness of breath, fatigue, loss of appetite, weight loss (7lb 1 mos), abdominal pain and back pain w/ associated LE numbness over the last 1.5 months -SOB, Fatigue, Weight loss 2/2 Possible Cancer Cachexia/Cancer Fatigue Syndrome -Hx of Breast CA s/p Lumpectomy, Chemo/Rads -Lost to follow up -CT shows extensive suspected mets -Decreased appetite, weight loss, denies night sweats -Continue Tamoxifen -IR Consulted for potential bx -Heme Onc consulted -Shortness of Breath 2/2 Possible COVID19 -CT shows multilple rounded densities in base of lungs -Increasing SoB -Elevated Alk Phos, AST/ALT, CK -Covid Labs: Trend -Start Abx if markers positive -Chronic Back Pain -CT shows possible extensive mets to bony structures -Continue Meloxicam -Pain control w/ morphine PRN -FU heme onc/IR -Lower Extremity Neuropathy -Hx of Chemo/Rads -CT shows possible mets to spine -Continue Gabapentin -Await Hemeonc/IR/Neuro Recs -Abdominal Pain -CT shows gall bladder thickening -Possible cholecystitis -Monitor clinically -Transaminitis -Possibly 2.2 r/o Covid -Possibly 2/2 r/o mets -Trend LFTs -FEN -No Standing Fluids -Lytes -Sodium Controlled Diet -PPx -Lovenox 40mg Dispo: Admit ptn to med/surg and monitor - Family Medical History Family History: As Documented Visit type - Emergency Visit Emergency Visit: Yes ED Registration Date: 04/19/20 Care time: The patient presented to the Emergency Department on the above date and was hospitalized for further evaluation of their emergent condition. - New Patient This patient is new to me today: Yes Date on this admission: 04/19/20 - Critical Care Critical Care patient: No ATTENDING PHYSICIAN STATEMENT I saw and evaluated the patient. I reviewed the resident's note and discussed the case with the resident. I agree with the resident's findings and plan as documented. SUBJECTIVE: OBJECTIVE: ASSESSMENT AND PLAN:
[2020-04-19 05:44] LABS: BASO % 0.7 % (0-2.0); EOS % 0.2 % (0-4.5); HEMOGLOBIN 12.4 GM/dL (10.7-15.3); LYMPH % 27.6 % (8-40); MCH 31.2 pg (25.7-33.7); MCHC 34.5 g/dl (32.0-36.0); MEAN CELL VOLUME 90.6 fl (80-96); MEAN PLT VOLUME 9.2 fl (7.5-11.1); MONO % 9.7 % (3.8-10.2); NEUT % 61.8 % (42.8-82.8); PLATELET COUNT 147 K/MM3 (134-434); RBC 3.98 M/mm3 (3.60-5.2); WHITE BLOOD COUNT 6.9 K/mm3 (4.0-10.0)
[2020-04-19 06:13] LABS: ALBUMIN 2.8 g/dl (3.4-5.0); BLOOD UREA NITROGEN 10.6 mg/dL (7-18); CALCIUM 8.2 mg/dL (8.5-10.1); CREATININE 0.8 mg/dL (0.55-1.3); MAGNESIUM 1.9 mg/dL (1.8-2.4); PHOSPHOROUS 3.4 mg/dL (2.5-4.9); POTASSIUM 3.6 mmol/L (3.5-5.1); TOT PROT 6.2 g/dl (6.4-8.2)
[2020-04-19] MEDS ORDERED: MORPHINE SULFATE 2 MG/ML VIAL ONE (08:25)
[2020-04-19] MEDS: MORPHINE SULFATE 2 MG/ML VIAL IVPUSH PRN ×2 (08:47→17:50)
--- NOTE | 2020-04-19 09:11 | CON.NEURO ---
Consult Consult Specialty:: [facility] Referred by:: ER Reason for Consultation:: Numbness - History of Present Illness History of Present Illness: 64 year sold woman with PMH CDA OA Depression HTN Breast Ca s/p chemo 2013 No recent covid infection Came in with abdominal pain and weight loss neuro she was with increasing leg numbness She is on neurontin mild back pain Neurontin with no help anymore No family history of neuropathy - History Source History Provided By: Patient Limitations to Obtaining History: No Limitations - Past Medical History Cardio/Vascular: Yes: HTN (fluctuating) ...: No - Past Surgical History Past Surgical History: Yes: None - Alcohol/Substance Use Hx Alcohol Use: No - Smoking History Smoking history: Never smoked Have you smoked in the past 12 months: No Aproximately how many cigarettes per day: 3 Home Medications - Allergies Allergies/Adverse Reactions: Allergies Allergy/AdvReac Type Severity Reaction Status Date / Time No Known Allergies Allergy Verified 04/18/20 21:01 - Home Medications Home Medications: Ambulatory Orders Amlodipine Besylate [Norvasc -] 5 mg PO ASDIR 08/18/14 Gabapentin 600 mg PO HS 08/30/18 Tamoxifen Citrate 20 mg PO DAILY 08/30/18 Meloxicam 7.5 mg PO PRN 04/19/20 Family Medical History Family History: Unremarkable Review of Systems - Review of Systems Neurological: reports: Dizziness, Incoordination, Numbness, Parasthesia, Pre-Existing Deficit, Unsteady Gait Physical Exam-Neuro Vital Signs: Vital Signs Temperature 98.8 F 04/19/20 05:35 Pulse Rate 96 H 04/19/20 05:35 Respiratory Rate 19 04/19/20 05:35 Blood Pressure 106/71 04/19/20 05:35 O2 Sat by Pulse Oximetry (%) 99 04/19/20 05:35 Labs: CBC, BMP 04/19/20 05:30 04/19/20 05:30 INR, PTT INR 1.16 (0.83-1.09) H 04/18/20 22:25 - Neuro Exam Level Of Consciousness: Yes: Oriented to Person, Oriented to Place, Oriented to Time Eyes: Yes: PERRLA Speech: WNL Dominant Hand: Right Cranial Nerves II-XII Intact: Yes Gag: Present DTR's: 0 Left Bicep, 0 Right Bicep, 0 Left Tricep, 0 Right Tricep, 0 Left Achilles, 0 Right Achilles Response to light touch: Abnormal Response to pain prick: Abnormal Response to temperature: Abnormal Motor Strength: 10/02: Left Leg, Right Leg, Right Arm, Left Arm Assessment/Plan Neuropathy associated with Chemo prior usage neuropathy associated with Tamoxifen usage Depression 1. Fall precaution 2. CT LS spine no C 3. Neurontin 400 mg po q12 4. Cymbalta 30 mg po qhs 5. Blood SPEP UPEP B12 RPR VALENCIA Zinc Mercury HA1c Anti Mag AB Thank you for the kind referral Elmer Bedolla MD [phone]
--- NOTE | 2020-04-19 09:28 | EKG ---
Test Reason : Blood Pressure : / mmHG Vent. Rate : 089 BPM Atrial Rate : 089 BPM P-R Int : 132 ms QRS Dur : 076 ms QT Int : 378 ms P-R-T Axes : 075 -79 043 degrees QTc Int : 459 ms NORMAL SINUS RHYTHM LEFT AXIS DEVIATION LOW VOLTAGE QRS CANNOT RULE OUT ANTERIOR INFARCT , AGE UNDETERMINED ABNORMAL ECG WHEN COMPARED WITH ECG OF 07-FEB-2014 13:54, RSR' PATTERN IN V1 IS NO LONGER PRESENT Confirmed by Bessy Carrera ([id number]) on 04/19/2020 9:28:05 AM Referred By: Confirmed By:Bessy Carrera
--- NOTE | 2020-04-19 10:01 | PN ---
Physical Exam: SUBJECTIVE: Patient seen and examined in the ED awaiting bed assignment. She is being ruled out for Covid 19 and remains on isolation. She tells me she has been feeling week for some time, and is unable to carry out her ADLs due to profound fatigue. her last chemo was in 2013 and then she had radiation therapy with Dr. Elizabeth. No recent travel and not around any sick contacts. She has chronic back pain. She denies chest pain or shortness of breath. Reports a very poor appetite with an unintential weight loss of apx 7 lbs in 1 month. OBJECTIVE: Patient is a 64 year old female with a significant past medical history of Left sided breast CA (s/p Lumpectomy, rads, chemo-04/2014), HTN, HLD, Anemia. She presents to the ED on 04/19/20 due to increasing shortness of breath, fatigue, loss of appetite, weight loss (7lb 1 mos), abdominal pain and back pain w/ associated LE numbness over the last 1.5 months. Patient states that recently she has been unable to complete her ADLs 2/2 her increasing numbness in her legs and is often required to stay laying down in bed to alleviate her pulmonary and pain symptoms. Additionally she endorses a non-productive cough and changes in smell/taste. covid status: pending ---- imaging: Chest CT: multiple round densities on lung bases which can be seen with covid 19, but cannot exclude alternative possibility of metastases. 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 abd/pelvis CT: Innumerable hypodense liver masses, some with rim enhancement, suspicious for metastases. abd u/s: Multiple heterogeneous liver masses, Vital Signs Period Temp Pulse Resp BP Sys/Vargas Pulse Ox Last 24 Hr 98.1 F-98.8 F 96-114 18-20 102-120/67-76 96-100 GENERAL: The patient is awake, alert, and fully oriented, in no acute distress. HEAD: Normal with no signs of trauma. EYES: PERRL, extraocular movements intact, sclera anicteric, conjunctiva clear. No ptosis. ENT: Ears normal, nares patent, oropharynx clear without exudates, moist mucous membranes. NECK: Trachea midline, full range of motion, supple. LUNGS: Breath sounds equal, clear to auscultation bilaterally, no wheezes HEART: Regular rate and rhythm ABDOMEN: Soft, nontender, nondistended, normoactive bowel sounds EXTREMITIES: no edema. NEUROLOGICAL: Normal speech, gait not observed. PSYCH: Normal mood, normal affect. SKIN: Warm, dry, normal turgor, no rashes or lesions noted Laboratory Results - last 24 hr 04/18/20 04/18/20 04/18/20 22:25 22:25 22:25 WBC 9.1 RBC 4.42 Hgb 13.8 Hct 40.2 MCV 91.0 MCH 31.1 MCHC 34.2 RDW 16.0 H Plt Count 164 MPV 9.3 Absolute Neuts (auto) 7.1 Neutrophils % 77.6 D Lymphocytes % 13.7 D Monocytes % 7.8 Eosinophils % 0.2 Basophils % 0.7 Nucleated RBC % 0 PT with INR 13.70 H INR 1.16 H PTT (Actin FS) 37.0 H D-Dimer Sodium 137 Potassium 3.6 Chloride 101 Carbon Dioxide 30 Anion Gap 6 L BUN 10.9 Creatinine 1.0 Est GFR (CKD-EPI)AfAm 69.44 Est GFR (CKD-EPI)NonAf 59.91 POC Glucometer Random Glucose 105 Calcium 8.9 Phosphorus Magnesium Ferritin Total Bilirubin 1.1 H AST 211 H ALT 63 H Alkaline Phosphatase 526 H LD Total Creatine Kinase 368 H Creatine Kinase Index 0.3 CK-MB (CK-2) 1.2 Troponin I < 0.02 C-Reactive Protein B-Natriuretic Peptide Total Protein 7.6 Albumin 3.4 Lipase 119 Anti-A Titer Blood Type Antibody Screen 04/18/20 04/18/20 04/18/20 22:25 22:25 22:57 WBC RBC Hgb Hct MCV MCH MCHC RDW Plt Count MPV Absolute Neuts (auto) Neutrophils % Lymphocytes % Monocytes % Eosinophils % Basophils % Nucleated RBC % PT with INR INR PTT (Actin FS) D-Dimer Sodium Potassium Chloride Carbon Dioxide Anion Gap BUN Creatinine Est GFR (CKD-EPI)AfAm Est GFR (CKD-EPI)NonAf POC Glucometer Random Glucose Calcium Phosphorus Magnesium Ferritin Total Bilirubin AST ALT Alkaline Phosphatase LD Total Creatine Kinase Creatine Kinase Index CK-MB (CK-2) Troponin I C-Reactive Protein B-Natriuretic Peptide 169.0 H Total Protein Albumin Lipase Anti-A Titer Cancelled Blood Type Cancelled O POSITIVE Antibody Screen Cancelled Negative 04/18/20 04/19/20 04/19/20 23:17 05:30 05:30 WBC 6.9 RBC 3.98 Hgb 12.4 Hct 36.0 MCV 90.6 MCH 31.2 MCHC 34.5 RDW 16.0 H Plt Count 147 MPV 9.2 Absolute Neuts (auto) 4.3 Neutrophils % 61.8 D Lymphocytes % 27.6 D Monocytes % 9.7 Eosinophils % 0.2 Basophils % 0.7 Nucleated RBC % 0 PT with INR INR PTT (Actin FS) D-Dimer 34632 H Sodium Potassium Chloride Carbon Dioxide Anion Gap BUN Creatinine Est GFR (CKD-EPI)AfAm Est GFR (CKD-EPI)NonAf POC Glucometer 120 Random Glucose Calcium Phosphorus Magnesium Ferritin Total Bilirubin AST ALT Alkaline Phosphatase LD Total Creatine Kinase Creatine Kinase Index CK-MB (CK-2) Troponin I C-Reactive Protein B-Natriuretic Peptide Total Protein Albumin Lipase Anti-A Titer Blood Type Antibody Screen 04/19/20 05:30 WBC RBC Hgb Hct MCV MCH MCHC RDW Plt Count MPV Absolute Neuts (auto) Neutrophils % Lymphocytes % Monocytes % Eosinophils % Basophils % Nucleated RBC % PT with INR INR PTT (Actin FS) D-Dimer Sodium 138 Potassium 3.6 Chloride 104 Carbon Dioxide 27 Anion Gap 8 BUN 10.6 Creatinine 0.8 Est GFR (CKD-EPI)AfAm 90.94 Est GFR (CKD-EPI)NonAf 78.46 POC Glucometer Random Glucose 80 Calcium 8.2 L Phosphorus 3.4 Magnesium 1.9 Ferritin 539.4 H Total Bilirubin 1.0 AST 155 H ALT 50 Alkaline Phosphatase 439 H LD Total 324 H Creatine Kinase Creatine Kinase Index CK-MB (CK-2) Troponin I C-Reactive Protein 6.1 H B-Natriuretic Peptide Total Protein 6.2 L Albumin 2.8 L Lipase Anti-A Titer Blood Type Antibody Screen Active Medications Generic Name Dose Route Start Last Admin Trade Name Freq PRN Reason Stop Dose Admin Amlodipine Besylate 5 mg 04/19/20 10:00 Norvasc - PO DAILY [facility] Enoxaparin Sodium 40 mg 04/19/20 10:00 Lovenox - SQ DAILY TIFFANY Gabapentin 600 mg 04/19/20 22:00 Neurontin - PO HS [facility] Morphine Sulfate 1 mg 04/19/20 05:17 04/19/20 08:47 Morphine Sulfate IVPUSH 1 mg Q4H PRN Administration PAIN LEVEL 4 - 6 Tamoxifen Citrate 20 mg 04/19/20 10:00 Tamoxifen Citrate PO DAILY TIFFANY ASSESSMENT/PLAN: Problem List - Problems (1) Liver lesion Assessment/Plan: Patient with innumerable hypodense liver masses, some with rim enhancement, suspicious for metastases. will need liver biopsy Code(s): K76.9 - LIVER DISEASE, UNSPECIFIED (2) Fatigue Assessment/Plan: patient reports increase in fatigue and unable to complete ADLs. She reports lower ext weakness. patient with a history of left breast cancer with lumpectomy s/p RT and chemotherapy. Imaging here shows extensive suspected metastatic disease Continue Tamoxifen IR consulted for possible liver biopsy once covid is ruled out will consulted RD Start on supplements physical therapy Heme/Onc consulted Code(s): R53.83 - OTHER FATIGUE (3) Weakness Assessment/Plan: physical therapy Code(s): R53.1 - WEAKNESS (4) COVID-19 Assessment/Plan: serology pending Code(s): U07.1 - COVID POSITIVE (5) Breast cancer, left breast Assessment/Plan: left breast cancer with lumpectomy, radation and RT in 2014. Imaging shows mets to liver, bone. heme oncology following for possible initiation of chemotherapy treatment Code(s): C50.912 - MALIGNANT NEOPLASM OF UNSPECIFIED SITE OF LEFT FEMALE BREAST (6) Elevated liver enzymes Assessment/Plan: trend daily, will send for a hepatitis panel Code(s): R74.8 - ABNORMAL LEVELS OF OTHER SERUM ENZYMES (7) Lower extremity weakness Assessment/Plan: for physical therapy evaluation Code(s): R29.898 - OTH SYMPTOMS AND SIGNS INVOLVING THE MUSCULOSKELETAL SYSTEM (8) DVT prophylaxis Assessment/Plan: on lovenox 40mg daily Code(s): Z29.9 - ENCOUNTER FOR PROPHYLACTIC MEASURES, UNSPECIFIED Visit type - Emergency Visit Emergency Visit: Yes ED Registration Date: 04/19/20 Care time: The patient presented to the Emergency Department on the above date and was hospitalized for further evaluation of their emergent condition. - New Patient This patient is new to me today: Yes Date on this admission: 04/20/20 - Critical Care Critical Care patient: No - Discharge Referral Referred to [facility] Med P.C.: No
[2020-04-19] MEDS ORDERED: ENOXAPARIN NA (PORCINE) 40 MG/0.4 ML DISP.SYRIN SQ ONE (10:55)
[2020-04-19] MEDS ORDERED: amLODIPine BESYLATE 5 MG TABLET (FP) ONE (10:55)
[2020-04-19] MEDS: ENOXAPARIN NA (PORCINE) 40 MG/0.4 ML DISP.SYRIN SQ SCH (11:03)
[2020-04-19] MEDS: GABAPENTIN 400 MG CAPSULE PO SCH ×2 (11:03→23:16)
[2020-04-19] MEDS: amLODIPine BESYLATE 5 MG TABLET (FP) PO SCH (11:03)
[2020-04-19] MEDS: TAMOXIFEN CITRATE 10 MG TABLET PO SCH (11:21)
--- NOTE | 2020-04-19 16:20 | CON.HO ---
Consult Consult Specialty:: Medical Oncology Reason for Consultation:: History of Breast Cancer now with multiple masses in chest and abdomen compatible with metastatic disease - History of Present Illness History of Present Illness: 64 y/o lady with history of Left sided breast CA (s/p Lumpectomy, chemotherapy (pt does not remember agents) and radiation therapy completed in 04/2014 presented to the ED due to increasing shortness of breath, fatigue, loss of appetite, weight loss (7lb 1 mos), abdominal pain and back pain w/ associated LE numbness over the last 1.5 months. She mentioned that has deteriorated progressively and the last 2 weeks was unable to perform ADLs, she mentioned after washing a single dish needed to take a nap afterwards. - History Source History Provided By: Patient, Medical Record Limitations to Obtaining History: No Limitations - Past Medical History Cardio/Vascular: Yes: HTN (fluctuating) ...: No - Past Surgical History Past Surgical History: Yes: None - Alcohol/Substance Use Hx Alcohol Use: No - Smoking History Smoking history: Never smoked Have you smoked in the past 12 months: No Aproximately how many cigarettes per day: 3 Home Medications - Allergies Allergies/Adverse Reactions: Allergies Allergy/AdvReac Type Severity Reaction Status Date / Time No Known Allergies Allergy Verified 04/18/20 21:01 - Home Medications Home Medications: Ambulatory Orders Amlodipine Besylate [Norvasc -] 5 mg PO ASDIR 08/18/14 Gabapentin 600 mg PO HS 08/30/18 Tamoxifen Citrate 20 mg PO DAILY 08/30/18 Meloxicam 7.5 mg PO PRN 04/19/20 Family Medical History Family History: Unremarkable Physical Exam Vital Signs: Vital Signs Temperature 98.8 F 04/19/20 05:35 Pulse Rate 95 H 04/19/20 13:01 Respiratory Rate 18 04/19/20 13:01 Blood Pressure 97/57 L 04/19/20 13:01 O2 Sat by Pulse Oximetry (%) 97 04/19/20 13:01 Constitutional: Yes: No Distress Eyes: Yes: WNL HENT: Yes: WNL, Atraumatic, Normocephalic Neck: Yes: WNL, Supple, Trachea Midline Cardiovascular: Yes: WNL, Regular Rate and Rhythm Respiratory: Yes: WNL, Regular, CTA Bilaterally Gastrointestinal: Yes: Normal Bowel Sounds Renal/: Yes: WNL Labs: CBC, BMP 04/19/20 05:30 04/19/20 05:30 Assessment/Plan 64 y/o lady with history of Left sided breast CA (s/p Lumpectomy, chemotherapy (pt does not remember agents) and radiation therapy completed in 04/2014 presented to the ED due to increasing shortness of breath, fatigue, loss of appetite, weight loss (7lb 1 mos), abdominal pain and back pain w/ associated LE numbness over the last 1.5 months. She mentioned that has deteriorated progressively and the last 2 weeks was unable to perform ADLs, she mentioned after washing a single dish needed to take a nap afterwards. Medical Oncology consulted due to breast cancer history no with likely disease recurrence. Recommend: 1) Await official CT reading 2) Agree with IR mediated biopsy 3) Will follow 4) Discussed with patient and explained she has multiple treatment options. 5) Thank you for this consultation
[2020-04-19] MEDS ORDERED: DULoxetine HCL 30 MG CAPSULE.DR PO SCH (22:00)
[2020-04-19] MEDS ORDERED: GABAPENTIN 300 MG CAPSULE PO SCH (22:00)
[2020-04-19] MEDS ORDERED: PT OWN MED DRAWER 7, Y5N ONE (22:24)
[2020-04-20] MEDS: MORPHINE SULFATE 2 MG/ML VIAL IVPUSH PRN (04:52)
[2020-04-20 09:08] LABS: INR 1.13 (0.83-1.09); PROTHROMBIN TIME (PATIENT) 13.4 SEC (9.7-13.0)
[2020-04-20 09:16] LABS: POTASSIUM 3.9 mmol/L (3.5-5.1)
[2020-04-20 09:30] LABS: ALBUMIN 2.7 g/dl (3.4-5.0); BILIRUBIN,TOTAL 1.1 mg/dL (0.2-1); BLOOD UREA NITROGEN 12.6 mg/dL (7-18); CALCIUM 8.2 mg/dL (8.5-10.1); CREATININE 0.9 mg/dL (0.55-1.3); MAGNESIUM 2.1 mg/dL (1.8-2.4); TOT PROT 6.2 g/dl (6.4-8.2)
[2020-04-20 09:42] LABS: BASO % 0.5 % (0-2.0); HEMATOCRIT 35.8 % (32.4-45.2); HEMOGLOBIN 12.1 GM/dL (10.7-15.3); LYMPH % 23.2 % (8-40); MCH 31.2 pg (25.7-33.7); MCHC 33.7 g/dl (32.0-36.0); MEAN CELL VOLUME 92.5 fl (80-96); MONO % 10.7 % (3.8-10.2); NEUT % 64.6 % (42.8-82.8); PLATELET COUNT 149 K/MM3 (134-434); RBC 3.86 M/mm3 (3.60-5.2)
[2020-04-20] MEDS: amLODIPine BESYLATE 5 MG TABLET (FP) PO SCH (09:51)
[2020-04-20] MEDS: ENOXAPARIN NA (PORCINE) 40 MG/0.4 ML DISP.SYRIN SQ SCH (09:51)
[2020-04-20] MEDS: TAMOXIFEN CITRATE 10 MG TABLET PO SCH (09:51)
[2020-04-20] MEDS: GABAPENTIN 400 MG CAPSULE PO SCH ×2 (09:52→22:05)
[2020-04-20 11:21] LABS: EPI CELLS >36 /uL (0-25.1); HYALINE CASTS 13 /uL (0-3.1); URINE APPEARANCE CLOUDY; URINE BACTERIA 1483 /uL (0-1359); URINE BILIRUBIN 2+ (NEGATIVE); URINE COLOR DK YELLOW; URINE GLUCOSE (UA) NEGATIVE (NEGATIVE); URINE KETONE TRACE (NEGATIVE); URINE LEUK ESTERASE 1+ (NEGATIVE); URINE NITRITE POSITIVE (NEGATIVE); URINE PROTEIN 1+ (NEGATIVE); URINE RBC 9 /uL (0-23.9); URINE UROBILINOGEN 4.0 E.U/dl mg/dL (0.2-1.0); URINE WBC 91 /uL (0-25.8)
[2020-04-20] MEDS: oxyCODONE HCL 5 MG TABLET PO PRN (16:52)
--- NOTE | 2020-04-20 16:56 | PN ---
Physical Exam: SUBJECTIVE: Patient seen and examined. She is being ruled out for Covid 19 and remains on isolation. reports that her pain is not controlled with the morphine and agrees to try oxycodone. She tells me she has been feeling week for some time, and is unable to carry out her ADLs due to profound fatigue. her last chemo was in 2013 and then she had radiation therapy with Dr. Elizabeth. No recent travel and not around any sick contacts. She has chronic back pain. She denies chest pain or shortness of breath. Reports a very poor appetite with an unintentional weight loss of apx 7 lbs in 1 month. OBJECTIVE: Patient is a 64 year old female with a significant past medical history of Left sided breast CA (s/p Lumpectomy, rads, chemo-04/2014), HTN, HLD, Anemia. She presents to the ED on 04/19/20 due to increasing shortness of breath, fatigue, loss of appetite, weight loss (7lb 1 mos), abdominal pain and back pain w/ associated LE numbness over the last 1.5 months. Patient states that recently she has been unable to complete her ADLs 2/2 her increasing numbness in her legs and is often required to stay laying down in bed to alleviate her pulmonary and pain symptoms. Additionally she endorses a non-productive cough and changes in smell/taste. Patient noted to have innumerable hypodense liver masses, some with rim enhancement, suspicious for metastases. She is for a liver biopsy tomorrow 04/21 with IR. NPO at midnight. covid status: pending ---- imaging: Chest CT: multiple round densities on lung bases which can be seen with covid 19, but cannot exclude alternative possibility of metastases. 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 abd/pelvis CT: Innumerable hypodense liver masses, some with rim enhancement, suspicious for metastases. abd u/s: Multiple heterogeneous liver masses, Vital Signs Vital Signs Period Temp Pulse Resp BP Sys/Vargas Pulse Ox Last 24 Hr 97.8 F-99.3 F 86-95 16-18 93-128/43-84 96-98 GENERAL: The patient is awake, alert, and fully oriented, in no acute distress. HEAD: Normal with no signs of trauma. EYES: PERRL, extraocular movements intact, sclera anicteric, conjunctiva clear. No ptosis. ENT: Ears normal, nares patent, oropharynx clear without exudates, moist mucous membranes. NECK: Trachea midline, full range of motion, supple. LUNGS: Breath sounds equal, clear to auscultation bilaterally, no wheezes HEART: Regular rate and rhythm ABDOMEN: Soft, nontender, nondistended, normoactive bowel sounds EXTREMITIES: no edema. NEUROLOGICAL: Normal speech, gait not observed. PSYCH: Normal mood, normal affect. SKIN: Warm, dry, normal turgor, no rashes or lesions noted Laboratory Results - last 24 hr 04/18/20 04/19/20 04/19/20 22:57 05:30 23:13 WBC RBC Hgb Hct MCV MCH MCHC RDW Plt Count MPV Absolute Neuts (auto) Neutrophils % Lymphocytes % Monocytes % Eosinophils % Basophils % Nucleated RBC % PT with INR INR Sodium Potassium Chloride Carbon Dioxide Anion Gap BUN Creatinine Est GFR (CKD-EPI)AfAm Est GFR (CKD-EPI)NonAf POC Glucometer 137 Random Glucose Calcium Magnesium Total Bilirubin AST ALT Alkaline Phosphatase Total Protein Albumin Urine Color Urine Appearance Urine pH Ur Specific [place] Urine Protein Urine Glucose (UA) Urine Ketones Urine Blood Urine Nitrite Urine Bilirubin Urine Urobilinogen Ur Leukocyte Esterase Urine WBC (Auto) Urine RBC (Auto) Urine Casts (Auto) U Pathogenic Cast Auto U Epithel Cells (Auto) U Sm Round Cell (Auto) Urine Bacteria (Auto) Hep A IgM Ab Confirm Negative Hep Bs Antigen Negative Hep B Core IgM Ab Negative Hepatitis C Ab (EIA) <0.1 Antibody Screen Negative 04/20/20 04/20/20 04/20/20 06:40 07:20 07:20 WBC 5.0 RBC 3.86 Hgb 12.1 Hct 35.8 MCV 92.5 MCH 31.2 MCHC 33.7 RDW 16.0 H Plt Count 149 MPV 10.0 Absolute Neuts (auto) 3.2 Neutrophils % 64.6 Lymphocytes % 23.2 Monocytes % 10.7 H Eosinophils % 1.0 D Basophils % 0.5 Nucleated RBC % 0 PT with INR 13.40 H INR 1.13 H Sodium Potassium Chloride Carbon Dioxide Anion Gap BUN Creatinine Est GFR (CKD-EPI)AfAm Est GFR (CKD-EPI)NonAf POC Glucometer 79 Random Glucose Calcium Magnesium Total Bilirubin AST ALT Alkaline Phosphatase Total Protein Albumin Urine Color Urine Appearance Urine pH Ur Specific [place] Urine Protein Urine Glucose (UA) Urine Ketones Urine Blood Urine Nitrite Urine Bilirubin Urine Urobilinogen Ur Leukocyte Esterase Urine WBC (Auto) Urine RBC (Auto) Urine Casts (Auto) U Pathogenic Cast Auto U Epithel Cells (Auto) U Sm Round Cell (Auto) Urine Bacteria (Auto) Hep A IgM Ab Confirm Hep Bs Antigen Hep B Core IgM Ab Hepatitis C Ab (EIA) Antibody Screen 04/20/20 04/20/20 04/20/20 07:20 10:00 11:17 WBC RBC Hgb Hct MCV MCH MCHC RDW Plt Count MPV Absolute Neuts (auto) Neutrophils % Lymphocytes % Monocytes % Eosinophils % Basophils % Nucleated RBC % PT with INR INR Sodium 137 Potassium 3.9 Chloride 104 Carbon Dioxide 27 Anion Gap 7 L BUN 12.6 Creatinine 0.9 Est GFR (CKD-EPI)AfAm 78.87 Est GFR (CKD-EPI)NonAf 68.05 POC Glucometer 95 Random Glucose 120 H Calcium 8.2 L Magnesium 2.1 Total Bilirubin 1.1 H AST 157 H ALT 46 Alkaline Phosphatase 523 H Total Protein 6.2 L Albumin 2.7 L Urine Color Dk yellow Urine Appearance Cloudy Urine pH 6.0 Ur Specific [place] 1.035 Urine Protein 1+ H Urine Glucose (UA) Negative Urine Ketones Trace H Urine Blood Negative Urine Nitrite Positive H Urine Bilirubin 2+ H Urine Urobilinogen 4.0 e.u/dl H Ur Leukocyte Esterase 1+ H Urine WBC (Auto) 91 Urine RBC (Auto) 9 Urine Casts (Auto) 13 U Pathogenic Cast Auto Non seen U Epithel Cells (Auto) >36 U Sm Round Cell (Auto) Non seen Urine Bacteria (Auto) 1483 Hep A IgM Ab Confirm Hep Bs Antigen Hep B Core IgM Ab Hepatitis C Ab (EIA) Antibody Screen 04/20/20 16:23 WBC RBC Hgb Hct MCV MCH MCHC RDW Plt Count MPV Absolute Neuts (auto) Neutrophils % Lymphocytes % Monocytes % Eosinophils % Basophils % Nucleated RBC % PT with INR INR Sodium Potassium Chloride Carbon Dioxide Anion Gap BUN Creatinine Est GFR (CKD-EPI)AfAm Est GFR (CKD-EPI)NonAf POC Glucometer 115 Random Glucose Calcium Magnesium Total Bilirubin AST ALT Alkaline Phosphatase Total Protein Albumin Urine Color Urine Appearance Urine pH Ur Specific [place] Urine Protein Urine Glucose (UA) Urine Ketones Urine Blood Urine Nitrite Urine Bilirubin Urine Urobilinogen Ur Leukocyte Esterase Urine WBC (Auto) Urine RBC (Auto) Urine Casts (Auto) U Pathogenic Cast Auto U Epithel Cells (Auto) U Sm Round Cell (Auto) Urine Bacteria (Auto) Hep A IgM Ab Confirm Hep Bs Antigen Hep B Core IgM Ab Hepatitis C Ab (EIA) Antibody Screen Active Medications Generic Name Dose Route Start Last Admin Trade Name Freq PRN Reason Stop Dose Admin Amlodipine Besylate 5 mg 04/19/20 10:00 04/20/20 09:51 Norvasc - PO 5 mg DAILY TIFFANY Administration Enoxaparin Sodium 40 mg 04/19/20 10:00 04/20/20 09:51 Lovenox - SQ 40 mg DAILY TIFFANY Administration Gabapentin 400 mg 04/19/20 10:15 04/20/20 09:52 Neurontin - PO 400 mg BID TIFFANY Administration Oxycodone HCl 5 mg 04/20/20 11:55 Roxicodone - PO Q6H PRN PAIN LEVEL 1-5 Oxycodone HCl 10 mg 04/20/20 11:56 04/20/20 16:52 Roxicodone - PO 10 mg Q6H PRN Administration PAIN LEVEL 7 - 10 Tamoxifen Citrate 20 mg 04/19/20 10:00 04/20/20 09:51 Tamoxifen Citrate PO 20 mg DAILY TIFFANY Administration ASSESSMENT/PLAN: Problem List - Problems (1) Liver lesion Assessment/Plan: Patient with innumerable hypodense liver masses, some with rim enhancement, suspicious for metastases. for liver biopsy on 04/21 with IR. NPO at midnight. Lovenox placed on hold by IR. Code(s): K76.9 - LIVER DISEASE, UNSPECIFIED (2) Fatigue Assessment/Plan: patient reports increase in fatigue and unable to complete ADLs. She reports lower ext weakness. patient with a history of left breast cancer with lumpectomy s/p RT and chemotherapy. Imaging here shows extensive suspected metastatic disease Continue Tamoxifen IR consulted for possible liver biopsy once covid is ruled out will consulted RD Start on supplements physical therapy Heme/Onc consulted Code(s): R53.83 - OTHER FATIGUE (3) Weakness Assessment/Plan: physical therapy Code(s): R53.1 - WEAKNESS (4) COVID-19 Assessment/Plan: serology pending Code(s): U07.1 - COVID POSITIVE (5) Breast cancer, left breast Assessment/Plan: left breast cancer with lumpectomy, radation and RT in 2015. Imaging shows mets to liver, bone. heme oncology following for possible initiation of chemotherapy treatment Code(s): C50.912 - MALIGNANT NEOPLASM OF UNSPECIFIED SITE OF LEFT FEMALE BREAST (6) Elevated liver enzymes Assessment/Plan: trend daily, will send for a hepatitis panel Code(s): R74.8 - ABNORMAL LEVELS OF OTHER SERUM ENZYMES (7) Lower extremity weakness Assessment/Plan: for physical therapy evaluation Code(s): R29.898 - OTH SYMPTOMS AND SIGNS INVOLVING THE MUSCULOSKELETAL SYSTEM (8) DVT prophylaxis Assessment/Plan: on lovenox 40mg daily - hold a.m. dose on 04/21 for procedure. Code(s): Z29.9 - ENCOUNTER FOR PROPHYLACTIC MEASURES, UNSPECIFIED Visit type - Emergency Visit Emergency Visit: Yes ED Registration Date: 04/19/20 Care time: The patient presented to the Emergency Department on the above date and was hospitalized for further evaluation of their emergent condition. - New Patient This patient is new to me today: No - Critical Care Critical Care patient: No - Discharge Referral Referred to [facility] Med P.C.: No
[2020-04-20] MEDS ORDERED: PT OWN MED DRAWER 7, Y5N ONE (21:58)
[2020-04-21] MEDS: oxyCODONE HCL 5 MG TABLET PO PRN ×4 (00:49→22:26)
[2020-04-21 08:46] LABS: INR 1.14 (0.83-1.09); PROTHROMBIN TIME (PATIENT) 13.5 SEC (9.7-13.0)
[2020-04-21 08:59] LABS: BASO % 0.4 % (0-2.0); EOS % 1.4 % (0-4.5); HEMATOCRIT 35.9 % (32.4-45.2); LYMPH % 29.1 % (8-40); MCH 30.6 pg (25.7-33.7); MCHC 33.5 g/dl (32.0-36.0); MEAN CELL VOLUME 91.4 fl (80-96); MEAN PLT VOLUME 9.4 fl (7.5-11.1); MONO % 13.2 % (3.8-10.2); NEUT % 55.9 % (42.8-82.8); PLATELET COUNT 164 K/MM3 (134-434); RBC 3.93 M/mm3 (3.60-5.2); RDW 16.4 % (11.6-15.6)
[2020-04-21 09:05] LABS: ALBUMIN 2.8 g/dl (3.4-5.0); BILIRUBIN,TOTAL 0.7 mg/dL (0.2-1); BLOOD UREA NITROGEN 10.6 mg/dL (7-18); CALCIUM 8.8 mg/dL (8.5-10.1); CREATININE 0.8 mg/dL (0.55-1.3); MAGNESIUM 1.8 mg/dL (1.8-2.4); TOT PROT 6.4 g/dl (6.4-8.2)
[2020-04-21] MEDS ORDERED: PT OWN MED DRAWER 7, Y5N ONE ×2 (09:12→21:39)
[2020-04-21] MEDS: TAMOXIFEN CITRATE 10 MG TABLET PO SCH (09:49)
[2020-04-21] MEDS: GABAPENTIN 400 MG CAPSULE PO SCH ×2 (09:49→21:49)
[2020-04-21] MEDS: amLODIPine BESYLATE 5 MG TABLET (FP) PO SCH (09:49)
--- NOTE | 2020-04-21 09:55 | PN ---
Progress Note (short form) - Note Progress Note: S: Pain improved with oxycodone 10 therapy. Otherwise curious about prognosis and when liver biopsy to be performed. No other complaints currently Vital Signs Temperature 98.2 F 04/21/20 06:00 Pulse Rate 92 H 04/21/20 06:00 Respiratory Rate 18 04/21/20 06:00 Blood Pressure 114/71 04/21/20 06:00 O2 Sat by Pulse Oximetry (%) 98 04/21/20 06:00 PE: Gen: NAD, awake, alert, oriented HEENT: NcAt, JAMARCUS, MMM Neck: No JVD, no lymphadenopathy appreciated LUNG: CTA b/l without wheezes or rales CARD: RRR no murmurs appreciated ABD: soft, NT/ND, normoactive BS, no guarding, no hepatomegaly EXT: no edema, no calf tenderness CBC, BMP 04/21/20 07:17 04/21/20 07:17 Hepatic Panel Total Bilirubin 0.7 mg/dL (0.2-1) 04/21/20 07:17 AST 155 U/L (15-37) H 04/21/20 07:17 ALT 42 U/L (13-61) 04/21/20 07:17 Alkaline Phosphatase 536 U/L (45-117) H 04/21/20 07:17 Albumin 2.8 g/dl (3.4-5.0) L 04/21/20 07:17 Active Medications Amlodipine Besylate (Norvasc -) 5 mg PO DAILY [facility] Last Admin: 04/21/20 09:49 Dose: 5 mg Documented by: Enoxaparin Sodium (Lovenox -) 40 mg SQ DAILY [facility] Last Admin: 04/20/20 09:51 Dose: 40 mg Documented by: Gabapentin (Neurontin -) 400 mg PO BID [facility] Last Admin: 04/21/20 09:49 Dose: 400 mg Documented by: Oxycodone HCl (Roxicodone -) 5 mg PO Q6H PRN PRN Reason: PAIN LEVEL 1-5 Oxycodone HCl (Roxicodone -) 10 mg PO Q6H PRN PRN Reason: PAIN LEVEL 7 - 10 Last Admin: 04/21/20 08:09 Dose: 10 mg Documented by: Tamoxifen Citrate (Tamoxifen Citrate) 20 mg PO DAILY [facility] Last Admin: 04/21/20 09:49 Dose: 20 mg Documented by: Microbiology 04/20/20 10:00 Urine - Urine Clean Catch Urine Culture - Final Normal Urogenital Lynda 04/19/20 10:40 Blood - Peripheral Venous Blood Culture - Preliminary NO GROWTH OBTAINED AFTER 24 HOURS, INCUBATION TO CONTINUE FOR 4 DAYS. 04/19/20 10:46 Blood - Peripheral Venous Blood Culture - Preliminary NO GROWTH OBTAINED AFTER 24 HOURS, INCUBATION TO CONTINUE FOR 4 DAYS. Assessment/Plan: Hepatic lesions suspect malignancy L Breast Ca s/p lumpectomy and RT in 2014 History of HTN, controlled --Imaging reviewed: multiple hypodense, rim-enhancing liver masses suspicious for metastases --Liver bx to be performed today [Covid neg] --HOLDING Lovenox SQ daily due to liver bx; to be restarted per IR recs --Continue Tamoxifen therapy and further recs per Hem/onc after biopsy results --Continue oxycodone 5/10mg therapy PRN per pain level; if needs escalate can evaluate at that time --Continue Gabapentin 400mg BID --Can continue Norvasc 5mg qdaily; HTN controlled --Pt will need PT prior to discharge as her ADLs have been limited per report Dispo:: Liver Bx today and will need post-procedural monitoring DO Tiffanie Sargent
[2020-04-21 14:42] VITALS: BMI 25.2
[2020-04-21 21:04] LABS: EPI CELLS >36 /uL (0-25.1); HYALINE CASTS 4 /uL (0-3.1); PH,URINE 5.5 (5.0-8.0); URINE APPEARANCE CLOUDY; URINE BACTERIA 1114 /uL (0-1359); URINE BILIRUBIN 1+ (NEGATIVE); URINE COLOR DK YELLOW; URINE GLUCOSE (UA) NEGATIVE (NEGATIVE); URINE KETONE TRACE (NEGATIVE); URINE LEUK ESTERASE 1+ (NEGATIVE); URINE NITRITE NEGATIVE (NEGATIVE); URINE PROTEIN TRACE (NEGATIVE); URINE RBC 8 /uL (0-23.9); URINE WBC 36 /uL (0-25.8)
[2020-04-22] MEDS ORDERED: SODIUM CHLORIDE 500 ML IV STA ×2 (01:36→11:20)
[2020-04-22] MEDS: oxyCODONE HCL 5 MG TABLET PO PRN ×2 (02:31→12:21)
[2020-04-22] MEDS: ACETAMINOPHEN 1000 MG/100 ML VIAL (NON FORMULARY) IVPB PRN (05:20)
[2020-04-22] MEDS ORDERED: PIPERACILLIN/TAZOBACTAM 4.5 GM VIAL IVPB ONE ×4 (05:24→17:13)
[2020-04-22] MEDS ORDERED: DEXTROSE 5%-WATER 100 ML IVPB ONE ×4 (05:24→17:13)
[2020-04-22] MEDS: PIPERACILLIN/TAZOB 4.5 GM 4.5 GM in DEXTROSE 5%-WATER 100 ML IVPB SCH ×5 (05:30→17:50)
--- NOTE | 2020-04-22 05:30 | PN ---
Progress Note (short form) - Note Progress Note: I was paged overnight for tachycardia 110s-130s. I examined the pt initially, and she was in no distress, just mild abdominal pain, and lungs CTAB. She was given 500cc bolus and HR responded minimally. CTA was ordered to rule out PE and was negative but did show possible right side PNA vs atelectasis. Following imaging, repeat vitals HR still 120s and temp 100.1. Given the possibility of PNA per imaging and given her medical hx of metastatic disease, I started her on Zosyn for hospital acquired pneumonia and consulted ID for further management of abx.
[2020-04-22 08:19] LABS: BASO % 0.4 % (0-2.0); EOS % 0.1 % (0-4.5); HEMATOCRIT 34.1 % (32.4-45.2); HEMOGLOBIN 11.6 GM/dL (10.7-15.3); LYMPH % 13.3 % (8-40); MCH 31.3 pg (25.7-33.7); MCHC 34.1 g/dl (32.0-36.0); MEAN CELL VOLUME 91.9 fl (80-96); MEAN PLT VOLUME 8.9 fl (7.5-11.1); MONO % 10.8 % (3.8-10.2); NEUT % 75.4 % (42.8-82.8); PLATELET COUNT 136 K/MM3 (134-434); RBC 3.71 M/mm3 (3.60-5.2); RDW 16.5 % (11.6-15.6); WHITE BLOOD COUNT 7.7 K/mm3 (4.0-10.0)
[2020-04-22 08:23] LABS: INR 1.26 (0.83-1.09); PROTHROMBIN TIME (PATIENT) 14.9 SEC (9.7-13.0)
[2020-04-22 08:44] LABS: ALBUMIN 2.6 g/dl (3.4-5.0); BILIRUBIN,TOTAL 0.7 mg/dL (0.2-1); BLOOD UREA NITROGEN 12.6 mg/dL (7-18); CALCIUM 8.4 mg/dL (8.5-10.1); CREATININE 0.8 mg/dL (0.55-1.3); MAGNESIUM 1.8 mg/dL (1.8-2.4); POTASSIUM 4.4 mmol/L (3.5-5.1)
[2020-04-22] MEDS ORDERED: PT OWN MED DRAWER 7, Y5N ONE ×2 (09:31→21:19)
[2020-04-22] MEDS: amLODIPine BESYLATE 5 MG TABLET (FP) PO SCH (09:33)
[2020-04-22] MEDS: TAMOXIFEN CITRATE 10 MG TABLET PO SCH (09:33)
[2020-04-22] MEDS: GABAPENTIN 400 MG CAPSULE PO SCH ×2 (09:33→21:22)
--- NOTE | 2020-04-22 09:59 | EKG ---
Test Reason : Blood Pressure : / mmHG Vent. Rate : 131 BPM Atrial Rate : 131 BPM P-R Int : 116 ms QRS Dur : 082 ms QT Int : 274 ms P-R-T Axes : 066 -77 029 degrees QTc Int : 404 ms SINUS TACHYCARDIA WITH OCCASIONAL PREMATURE VENTRICULAR COMPLEXES POSSIBLE LEFT ATRIAL ENLARGEMENT LEFT AXIS DEVIATION LOW VOLTAGE QRS INFERIOR INFARCT , AGE UNDETERMINED CANNOT RULE OUT ANTERIOR INFARCT (CITED ON OR BEFORE 18-APR-2020) ABNORMAL ECG WHEN COMPARED WITH ECG OF 18-APR-2020 23:21, PREMATURE VENTRICULAR COMPLEXES ARE NOW PRESENT Confirmed by Chaparro Brooke ([id number]) on 04/22/2020 9:58:26 AM Referred By: Confirmed By:Chaparro Brooke
--- NOTE | 2020-04-22 14:17 | PN ---
Progress Note (short form) - Note Progress Note: S: Overnight events noted. Patient on 2LNC currently SpO2 95%. Patient feels weak today, but did not sleep overnight. Fever noted overnight. Vital Signs Temperature 96.8 F L 04/22/20 10:00 Pulse Rate 115 H 04/22/20 10:00 Respiratory Rate 18 04/22/20 10:00 Blood Pressure 117/77 04/22/20 10:00 O2 Sat by Pulse Oximetry (%) 96 04/22/20 10:00 PE: Gen: NAD, awake, alert, oriented HEENT: NcAt, JAMARCUS, dry mucosa Neck: No JVD, no lymphadenopathy appreciated LUNG: RLL diminished breath sounds compared to LLL. No accessory muscle use. 2LNC CARD: Tachycardic with regular rhythm no murmurs appreciated ABD: soft, NT/ND, normoactive BS, no guarding, no hepatomegaly EXT: no edema, no calf tenderness CBC, BMP 04/22/20 07:02 04/22/20 06:00 Hepatic Panel Total Bilirubin 0.7 mg/dL (0.2-1) 04/22/20 06:00 AST 136 U/L (15-37) H 04/22/20 06:00 ALT 38 U/L (13-61) 04/22/20 06:00 Alkaline Phosphatase 466 U/L (45-117) H 04/22/20 06:00 Albumin 2.6 g/dl (3.4-5.0) L 04/22/20 06:00 Microbiology 04/19/20 10:40 Blood - Peripheral Venous Blood Culture - Preliminary NO GROWTH OBTAINED AFTER 72 HOURS, INCUBATION TO CONTINUE FOR 2 DAYS. 04/19/20 10:46 Blood - Peripheral Venous Blood Culture - Preliminary NO GROWTH OBTAINED AFTER 72 HOURS, INCUBATION TO CONTINUE FOR 2 DAYS. 04/20/20 10:00 Urine - Urine Clean Catch Urine Culture - Final Normal Urogenital Lynda Active Medications Acetaminophen (Ofirmev Injection -) 1,000 mg IVPB Q6H PRN PRN Reason: FEVER Last Admin: 04/22/20 05:20 Dose: 1,000 mg Documented by: Amlodipine Besylate (Norvasc -) 5 mg PO DAILY [facility] Last Admin: 04/22/20 09:33 Dose: 5 mg Documented by: Enoxaparin Sodium (Lovenox -) 40 mg SQ DAILY [facility] Last Admin: 04/20/20 09:51 Dose: 40 mg Documented by: Gabapentin (Neurontin -) 400 mg PO BID [facility] Last Admin: 04/22/20 09:33 Dose: 400 mg Documented by: Piperacillin Sod/Tazobactam (Sod 4.5 gm/ Dextrose) 100 mls @ 200 mls/hr IVPB Q6H-IV [facility]; Protocol Piperacillin Sod/Tazobactam (Sod 4.5 gm/ Dextrose) 100 mls @ 200 mls/hr IVPB Q6H-IV [facility]; Protocol Stop: 04/22/20 21:29 Last Admin: 04/22/20 09:34 Dose: 200 mls/hr Documented by: Oxycodone HCl (Roxicodone -) 5 mg PO Q6H PRN PRN Reason: PAIN LEVEL 1-5 Last Admin: 04/22/20 02:31 Dose: 5 mg Documented by: Oxycodone HCl (Roxicodone -) 10 mg PO Q6H PRN PRN Reason: PAIN LEVEL 7 - 10 Last Admin: 04/22/20 12:21 Dose: 10 mg Documented by: Tamoxifen Citrate (Tamoxifen Citrate) 20 mg PO DAILY [facility] Last Admin: 04/22/20 09:33 Dose: 20 mg Documented by: Assessment/Plan: RLL Pneumonia ?aspiration vs. hospital-acquired Hepatic lesions suspect malignancy L Breast Ca s/p lumpectomy and RT in 2014 History of HTN, controlled --Overnight CT noted; atelectasis vs. opacification in RLL --Fever overnight; blood cultures --Zosyn started to be continued for coverage of Gram negative bacteria --ID consulted --Monitor fever curve --Encourage incentive spirometer --NS 500cc bolus given ongoing tachycardia and dryer mucosa; encourage fluid intake --Liver Bx 04/21; f/u pathology report --H/H stable currently; continue to monitor and can restart lovenox tomorrow AM --Continue Tamoxifen therapy and further recs per Hem/onc after biopsy results --Continue oxycodone 5/10mg therapy PRN per pain level; if needs escalate can evaluate at that time --Continue Gabapentin 400mg BID --Can continue Norvasc 5mg qdaily; HTN controlled --Pt will need PT prior to discharge as her ADLs have been limited per report Dispo: continue M/S DO Tiffanie Sargent
--- NOTE | 2020-04-22 15:49 | CON.ID ---
Consult Consult Specialty:: infectious disease Referred by:: hospitalist Reason for Consultation:: possible pneumonia - History of Present Illness Chief Complaint: weakness History of Present Illness: 64 yo female admitted 04/18 with fatigue decreased appetite, abdominal discomfort. she has a history of breast cancer is s/p chemo and RT 2013 reports back pain and abdominal pain imaging in the ED with bony mets to thoracic, lumbar spines, right ribs and sternum also lever masses she is s/p liver biopsy yesterday she follows with dr monk at [facility] and is on tamoxifen she last saw him in Aug 2019 overnight she was tachycardic and noted to have low grade temp chest cta with no PE but some incrased in bibasilar consolidations - History Source History Provided By: Patient, Medical Record Limitations to Obtaining History: Clinical Condition - Past Medical History Cardio/Vascular: Yes: HTN (fluctuating), Hyperlipdemia ...: No Heme/Onc: Yes: Anemia, Cancer (breast cancer) - Past Surgical History Additional Surgical History: lumpectomy - Alcohol/Substance Use Hx Alcohol Use: No - Smoking History Smoking history: Never smoked Have you smoked in the past 12 months: No Aproximately how many cigarettes per day: 3 - Social History ADL: Independent History of Recent Travel: No Home Medications - Allergies Allergies/Adverse Reactions: Allergies Allergy/AdvReac Type Severity Reaction Status Date / Time No Known Allergies Allergy Verified 04/18/20 21:01 - Home Medications Home Medications: Ambulatory Orders Amlodipine Besylate [Norvasc -] 5 mg PO ASDIR 08/18/14 Gabapentin 600 mg PO HS 08/30/18 Tamoxifen Citrate 20 mg PO DAILY 08/30/18 Meloxicam 7.5 mg PO PRN 04/19/20 Family Medical History Family History: Unremarkable Review of Systems - Review of Systems Constitutional: denies: Chills, Fever Eyes: reports: No Symptoms HENT: reports: No Symptoms Cardiovascular: denies: Chest Pain Respiratory: denies: Cough Gastrointestinal: reports: Abdominal Pain, Bloating. denies: Constipation, Diarrhea Genitourinary: reports: No Symptoms Physical Exam Vital Signs: Vital Signs Temperature 98.8 F 04/22/20 14:00 Pulse Rate 102 H 04/22/20 14:00 Respiratory Rate 18 04/22/20 14:00 Blood Pressure 127/76 04/22/20 14:00 O2 Sat by Pulse Oximetry (%) 96 04/22/20 14:00 Constitutional: Yes: No Distress, Anxious, Other (poor historian, poor memory for events) Eyes: Yes: Conjunctiva Clear HENT: Yes: Atraumatic, Normocephalic Neck: Yes: Supple, Trachea Midline Cardiovascular: Yes: Regular Rate and Rhythm Respiratory: Yes: Regular, CTA Bilaterally Gastrointestinal: Yes: Normal Bowel Sounds, Distention ...Rectal Exam: Yes: Deferred Extremities: Yes: WNL Edema: No Psychiatric: Yes: Alert Labs: CBC, BMP 04/22/20 07:02 04/22/20 06:00 Microbiology 04/19/20 10:40 Blood - Peripheral Venous Blood Culture - Preliminary NO GROWTH OBTAINED AFTER 72 HOURS, INCUBATION TO CONTINUE FOR 2 DAYS. 04/19/20 10:46 Blood - Peripheral Venous Blood Culture - Preliminary NO GROWTH OBTAINED AFTER 72 HOURS, INCUBATION TO CONTINUE FOR 2 DAYS. 04/20/20 10:00 Urine - Urine Clean Catch Urine Culture - Final Normal Urogenital Lynda Imaging - Results Chest X-ray: Report Reviewed Cat Scan: Report Reviewed, Image Reviewed Problem List - Problems (1) Pneumonia Code(s): J18.9 - PNEUMONIA, UNSPECIFIED ORGANISM (2) Breast cancer, left breast Code(s): C50.912 - MALIGNANT NEOPLASM OF UNSPECIFIED SITE OF LEFT FEMALE BREAST (3) Liver lesion Code(s): K76.9 - LIVER DISEASE, UNSPECIFIED Assessment/Plan continue zosyn for possible pneumonia f/u liver biopsy work up for liver lesions in progress d/w hospitalist
[2020-04-22] MEDS ORDERED: oxyCODONE HCL 5 MG TABLET PO ONE (17:12)
[2020-04-23] MEDS ORDERED: PIPERACILLIN/TAZOBACTAM 4.5 GM VIAL IVPB ONE ×3 (02:07→16:59)
[2020-04-23] MEDS ORDERED: DEXTROSE 5%-WATER 100 ML IVPB ONE ×3 (02:07→16:59)
[2020-04-23] MEDS: PIPERACILLIN/TAZOB 4.5 GM 4.5 GM in DEXTROSE 5%-WATER 100 ML IVPB SCH ×3 (02:20→18:44)
[2020-04-23] MEDS: oxyCODONE HCL 5 MG TABLET PO PRN ×3 (04:14→23:34)
[2020-04-23] MEDS: ACETAMINOPHEN 1000 MG/100 ML VIAL (NON FORMULARY) IVPB PRN (07:43)
[2020-04-23 08:23] LABS: BASO % 0.4 % (0-2.0); EOS % 1.5 % (0-4.5); HEMATOCRIT 33.7 % (32.4-45.2); HEMOGLOBIN 11.4 GM/dL (10.7-15.3); MCH 30.7 pg (25.7-33.7); MCHC 33.9 g/dl (32.0-36.0); MEAN CELL VOLUME 90.6 fl (80-96); MEAN PLT VOLUME 9.2 fl (7.5-11.1); MONO % 11.9 % (3.8-10.2); NEUT % 69.2 % (42.8-82.8); PLATELET COUNT 145 K/MM3 (134-434); RBC 3.72 M/mm3 (3.60-5.2); RDW 17.1 % (11.6-15.6); WHITE BLOOD COUNT 8.4 K/mm3 (4.0-10.0)
[2020-04-23 08:40] LABS: INR 1.24 (0.83-1.09); PROTHROMBIN TIME (PATIENT) 14.7 SEC (9.7-13.0)
[2020-04-23 08:54] LABS: ALBUMIN 2.5 g/dl (3.4-5.0); BILIRUBIN,TOTAL 0.9 mg/dL (0.2-1); BLOOD UREA NITROGEN 11.5 mg/dL (7-18); CALCIUM 8.3 mg/dL (8.5-10.1); CREATININE 0.8 mg/dL (0.55-1.3); MAGNESIUM 1.9 mg/dL (1.8-2.4); POTASSIUM 4.4 mmol/L (3.5-5.1); TOT PROT 5.9 g/dl (6.4-8.2)
[2020-04-23] MEDS ORDERED: PT OWN MED DRAWER 7, Y5N ONE ×2 (09:06→21:14)
--- NOTE | 2020-04-23 10:31 | PN ---
Progress Note (short form) - Note Progress Note: S: No overnight events. Patient much more alert today after having oxy 10mg PRN held. Patient in marked pain however. Patient reports she would like BID PT as she feels weak when walking to the bathroom. No fever/chills, oxygen on RA 93% and feels improved with breathing. Vital Signs Temperature 99.6 F 04/23/20 07:00 Pulse Rate 104 H 04/23/20 07:00 Respiratory Rate 18 04/23/20 07:00 Blood Pressure 104/68 04/23/20 07:00 O2 Sat by Pulse Oximetry (%) 94 L 04/23/20 07:00 PE: Gen: NAD, awake, alert, oriented HEENT: NcAt, JAMARCUS, MMM Neck: No JVD, LUNG: Improved aeration of the RLL however unequal to LLL. No accessory muscle use. 2LNC 97% CARD: RRR no murmurs appreciated ABD: soft, NT/ND, normoactive BS, no guarding, no hepatomegaly Neuro: Nonfocal exam. Gait balanced and coordinated EXT: no edema, no calf tenderness CBC, BMP 04/23/20 07:36 04/23/20 07:36 Microbiology 04/19/20 10:40 Blood - Peripheral Venous Blood Culture - Preliminary NO GROWTH OBTAINED AFTER 72 HOURS, INCUBATION TO CONTINUE FOR 2 DAYS. 04/19/20 10:46 Blood - Peripheral Venous Blood Culture - Preliminary NO GROWTH OBTAINED AFTER 72 HOURS, INCUBATION TO CONTINUE FOR 2 DAYS. 04/20/20 10:00 Urine - Urine Clean Catch Urine Culture - Final Normal Urogenital Lynda Active Medications Acetaminophen (Ofirmev Injection -) 1,000 mg IVPB Q6H PRN PRN Reason: FEVER Last Admin: 04/23/20 07:43 Dose: 1,000 mg Documented by: Amlodipine Besylate (Norvasc -) 5 mg PO DAILY [facility] Last Admin: 04/22/20 09:33 Dose: 5 mg Documented by: Enoxaparin Sodium (Lovenox -) 40 mg SQ DAILY [facility] Last Admin: 04/20/20 09:51 Dose: 40 mg Documented by: Gabapentin (Neurontin -) 400 mg PO BID [facility] Last Admin: 04/22/20 21:22 Dose: 400 mg Documented by: Piperacillin Sod/Tazobactam (Sod 4.5 gm/ Dextrose) 100 mls @ 200 mls/hr IVPB Q8H-IV [facility]; Protocol Last Admin: 04/23/20 02:20 Dose: 200 mls/hr Documented by: Oxycodone HCl (Roxicodone -) 5 mg PO Q6H PRN PRN Reason: PAIN LEVEL 1-5 Last Admin: 04/23/20 04:14 Dose: 5 mg Documented by: Oxycodone HCl (Roxicodone -) 10 mg PO Q6H PRN PRN Reason: PAIN LEVEL 7 - 10 Tamoxifen Citrate (Tamoxifen Citrate) 20 mg PO DAILY [facility] Last Admin: 04/22/20 09:33 Dose: 20 mg Documented by: Assessment/Plan: RLL Pneumonia improving Hepatic lesions suspect malignancy L Breast Ca s/p lumpectomy and RT in 2014 History of HTN, controlled --Improved mentation off of oxycodone 10, however patient is in pain related to malignancy --Discussed with patient pro's and con's of pain management and she will try to use oxy 10 alternating with oxy 5 (when appropriate timing comes) --Recall PT BID --Zosyn day 2 for pneumonia --Improved oxygenation and wean O2 as necessary (maintain >92%) --ID on board --Monitor fever curve --Encourage incentive spirometer --Liver Bx 04/21; f/u pathology report --H/H stable currently --Restarted PPX dosing of Lovenox --Continue Tamoxifen therapy and further recs per Hem/onc after biopsy results --Continue Gabapentin 400mg BID --Can continue Norvasc 5mg qdaily; HTN controlled Dispo: continue M/S DO Tiffanie Sargent IM
[2020-04-23] MEDS: GABAPENTIN 400 MG CAPSULE PO SCH ×2 (10:51→21:18)
[2020-04-23] MEDS: amLODIPine BESYLATE 5 MG TABLET (FP) PO SCH (10:51)
[2020-04-23] MEDS: ENOXAPARIN NA (PORCINE) 40 MG/0.4 ML DISP.SYRIN SQ SCH (10:52)
[2020-04-23] MEDS: TAMOXIFEN CITRATE 10 MG TABLET PO SCH (10:58)
--- NOTE | 2020-04-23 13:51 | PATH ---
Surgical Pathology Report Patient Name: CAYETANO ALFARO Med. Rec. #: [id number] /Age/Gender: 1955 (Age: 64) / F Account: [id number] Location: [address] [place] [address]/[facility] Taken: 04/21/2020 Received: 04/21/2020 Reported: 04/23/2020 Physicians: Mark Mace F.N.P. Michael Corti, M.D. Roberto Sica, MD Specimen(s) Received LIVER TISSUE Clinical History 64-year-old female with history of breast cancer, now with infiltrative of liver process, sclerotic bony Lesion, and retroperitoneal Lymph node Rule out metastasis from the breast versus primary liver neoplasm Final Diagnosis LIVER TISSUE, ULTRASOUND GUIDED CORE BIOPSY: METASTATIC ADENOCARCINOMA. SEE COMMENT. Comment: Immunohistochemical stains performed and interpreted at [facility] show the tumor is positive for CK7, MOISES-3, GCDFP-15, ER, and mammaglobin; while negative for CK20 and HAS (Heppar). Above immunophenotype is consistent with known breast primary. Findings discussed with Dr. Barry, 04/23/20. Positive and negative controls (internal if applicable) show appropriate results. Electronically Signed Adelina Lopez M.D. Gross Description Received in formalin labeled "liver tissue," are 3 interiano, cylindrical portions of soft tissue ranging from 0.9-1.5 cm in length and averaging 0.1 cm in diameter. The specimens are submitted in toto in one cassette. 04/21/2020 [facility]04/21/2020
--- NOTE | 2020-04-23 15:09 | PN ---
Progress Note (short form) - Note Progress Note: feels improved today less sob, no cough Vital Signs Period Temp Pulse Resp BP Sys/Vargas Pulse Ox Last 24 Hr 98.3 F-99.6 F 100-111 18-18 104-136/62-75 94-100 cor-rrr lungs decreased bs on the left abd soft,nt ext no edema CBC, BMP 04/23/20 07:36 04/23/20 07:36 liver biopsy with adenoca c/w breast origin Microbiology 04/22/20 12:10 Blood - Peripheral Venous Blood Culture - Preliminary NO GROWTH OBTAINED AFTER 24 HOURS, INCUBATION TO CONTINUE FOR 4 DAYS. 04/22/20 12:00 Blood - Peripheral Venous Blood Culture - Preliminary NO GROWTH OBTAINED AFTER 24 HOURS, INCUBATION TO CONTINUE FOR 4 DAYS. 04/19/20 10:40 Blood - Peripheral Venous Blood Culture - Preliminary NO GROWTH OBTAINED AFTER 96 HOURS, INCUBATION TO CONTINUE FOR 1 DAYS. 04/19/20 10:46 Blood - Peripheral Venous Blood Culture - Preliminary NO GROWTH OBTAINED AFTER 96 HOURS, INCUBATION TO CONTINUE FOR 1 DAYS. 04/20/20 10:00 Urine - Urine Clean Catch Urine Culture - Final Normal Urogenital Lynda a/p ?pneumonia vs atelectasis- continue zosyn, encourage incentive spirometry metastatic breast cancer- f/u with oncology Problem List - Problems (1) Pneumonia Code(s): J18.9 - PNEUMONIA, UNSPECIFIED ORGANISM (2) Breast cancer, left breast Code(s): C50.912 - MALIGNANT NEOPLASM OF UNSPECIFIED SITE OF LEFT FEMALE BREAST (3) Liver lesion Code(s): K76.9 - LIVER DISEASE, UNSPECIFIED
[2020-04-24] MEDS ORDERED: DEXTROSE 5%-WATER 100 ML IVPB ONE ×2 (01:54→09:30)
[2020-04-24] MEDS ORDERED: PIPERACILLIN/TAZOBACTAM 4.5 GM VIAL IVPB ONE ×2 (01:54→09:30)
[2020-04-24] MEDS: PIPERACILLIN/TAZOB 4.5 GM 4.5 GM in DEXTROSE 5%-WATER 100 ML IVPB SCH ×2 (02:11→10:48)
[2020-04-24 02:31] LABS: HEP B CORE AB, TOT Negative (Negative)
[2020-04-24] MEDS: ACETAMINOPHEN 500 MG TABLET (FP) PO PRN ×2 (05:51→13:07)
--- NOTE | 2020-04-24 08:29 | PN ---
Physical Exam: SUBJECTIVE: Patient seen and examined OBJECTIVE: Vital Signs Period Temp Pulse Resp BP Sys/Vargas Pulse Ox Last 24 Hr 97.9 F-99.8 F 94-102 16-18 111-126/55-67 96-100 Gen: NAD, awake, alert, oriented HEENT: NcAt, JAMARCUS, MMM Neck: No JVD, LUNG: clear, no rales or crackles. No accessory muscle use. sat 97% on room air CARD: RRR no murmurs appreciated ABD: soft, NT/ND, normoactive BS, no guarding, no hepatomegaly Neuro: Nonfocal exam. Gait balanced and coordinated EXT: no edema, no calf tenderness Laboratory Results - last 24 hr 04/21/20 04/23/20 04/23/20 07:17 07:36 07:36 WBC 8.4 RBC 3.72 Hgb 11.4 Hct 33.7 MCV 90.6 MCH 30.7 MCHC 33.9 RDW 17.1 H Plt Count 145 MPV 9.2 Absolute Neuts (auto) 5.8 Neutrophils % 69.2 Lymphocytes % 17.0 D Monocytes % 11.9 H Eosinophils % 1.5 D Basophils % 0.4 Nucleated RBC % 0 PT with INR 14.70 H INR 1.24 H Sodium Potassium Chloride Carbon Dioxide Anion Gap BUN Creatinine Est GFR (CKD-EPI)AfAm Est GFR (CKD-EPI)NonAf POC Glucometer Random Glucose Calcium Magnesium Total Bilirubin AST ALT Alkaline Phosphatase Total Protein Albumin Hep A IgM Ab Confirm Negative Hepatitis A Ab Total Negative Hep Bs Antigen Negative Hep Bs Antibody Non reactive Hep B Core Total Ab Negative Hep B Core IgM Ab Negative Hepatitis Be Antibody Negative Hepatitis Be Antigen Negative 04/23/20 04/23/20 04/24/20 07:36 21:20 05:53 WBC RBC Hgb Hct MCV MCH MCHC RDW Plt Count MPV Absolute Neuts (auto) Neutrophils % Lymphocytes % Monocytes % Eosinophils % Basophils % Nucleated RBC % PT with INR INR Sodium 134 L Potassium 4.4 Chloride 100 Carbon Dioxide 28 Anion Gap 6 L BUN 11.5 Creatinine 0.8 Est GFR (CKD-EPI)AfAm 90.94 Est GFR (CKD-EPI)NonAf 78.46 POC Glucometer 131 72 Random Glucose 86 Calcium 8.3 L Magnesium 1.9 Total Bilirubin 0.9 AST 118 H ALT 34 Alkaline Phosphatase 403 H Total Protein 5.9 L Albumin 2.5 L Hep A IgM Ab Confirm Hepatitis A Ab Total Hep Bs Antigen Hep Bs Antibody Hep B Core Total Ab Hep B Core IgM Ab Hepatitis Be Antibody Hepatitis Be Antigen Active Medications Generic Name Dose Route Start Last Admin Trade Name Freq PRN Reason Stop Dose Admin Acetaminophen 1,000 mg 04/23/20 16:04 04/24/20 05:51 Tylenol - PO 1,000 mg Q6H PRN Administration FEVER Amlodipine Besylate 5 mg 04/19/20 10:00 04/23/20 10:51 Norvasc - PO 5 mg DAILY [facility] Administration Enoxaparin Sodium 40 mg 04/19/20 10:00 04/23/20 10:52 Lovenox - SQ 40 mg DAILY [facility] Administration Gabapentin 400 mg 04/19/20 10:15 04/23/20 21:18 Neurontin - PO 400 mg BID [facility] Administration Piperacillin Sod/Tazobactam 100 mls @ 200 mls/hr 04/22/20 18:00 04/24/20 02:11 Sod 4.5 gm/ Dextrose IVPB 200 mls/hr Q8H-IV [facility] Administration Protocol Oxycodone HCl 5 mg 04/20/20 11:55 04/23/20 04:14 Roxicodone - PO 5 mg Q6H PRN Administration PAIN LEVEL 1-5 Oxycodone HCl 10 mg 04/23/20 09:21 04/23/20 23:34 Roxicodone - PO 10 mg Q6H PRN Administration PAIN LEVEL 7 - 10 Tamoxifen Citrate 20 mg 04/19/20 10:00 04/23/20 10:58 Tamoxifen Citrate PO 20 mg DAILY [facility] Administration ASSESSMENT/PLAN: 64 year old lady with a Mhx of Left sided breast CA (s/p Lumpectomy, rads, chemo-04/2014), HTN, HLD, Anemia. She presents to the ED on 04/19/20 due to increasing shortness of breath, fatigue, loss of appetite, weight loss (7lb 1 mos), abdominal pain and back pain w/ associated LE numbness over the last 1.5 months. # Metastatic Breast CA Breast Ca, RT 2013 liver mets confirmed by pathology report Off Oxygen, sat>95% had BM, tolerated diet Pneumonia, no fever last 48H. deescalate Abx taper pain meds due to opioid induced constipation, had BM yesterday Encourage incentive spirometer Radiation Neuropathy (c/w Gabapentin 400mg BID) L Breast Ca s/p lumpectomy and RT in 2014 HTN HLD DVT prophylaxis Discharge planning for outpatient follow up with PT, HemOnc and PET scan with PO chemo Visit type - Emergency Visit Emergency Visit: Yes ED Registration Date: 04/19/20 Care time: The patient presented to the Emergency Department on the above date and was hospitalized for further evaluation of their emergent condition. - New Patient This patient is new to me today: Yes Date on this admission: 04/24/20 - Critical Care Critical Care patient: No - Discharge Referral Referred to [facility] Med [facility].C.: No
[2020-04-24] MEDS ORDERED: PT OWN MED DRAWER 7, Y5N ONE ×3 (09:30→21:21)
[2020-04-24] MEDS: ENOXAPARIN NA (PORCINE) 40 MG/0.4 ML DISP.SYRIN SQ SCH (10:48)
[2020-04-24] MEDS: amLODIPine BESYLATE 5 MG TABLET (FP) PO SCH (10:49)
[2020-04-24] MEDS: GABAPENTIN 400 MG CAPSULE PO SCH ×2 (10:49→23:02)
[2020-04-24] MEDS: TAMOXIFEN CITRATE 10 MG TABLET PO SCH (10:56)
--- NOTE | 2020-04-24 11:27 | PN.HO ---
Progress Note (short form) - Note Progress Note: I spoke in detail at bedside with Ms James regarding her liver biopsy results consistent with metastatic Breast Cancer. She understands her options moving forward including CDK inhibitors with AI (oral chemo) and possible radiation to her lumbar spine for relief. I spoke with her primary oncologist, Dr Pabon who is aware of her hospital stay and recent findings. Once she is stable for dc, patient can continue follow up with Dr Pabon who has been her oncologist since 2013. All questions were answered to the satisfaction of the patient. Oncology to sign off. Please re-consult as needed.
--- NOTE | 2020-04-24 14:17 | DS ---
Physical Exam: SUBJECTIVE: Patient seen and examined OBJECTIVE: Vital Signs Period Temp Pulse Resp BP Sys/Vargas Pulse Ox Last 24 Hr 98.2 F-99.8 F 94-100 16-20 105-124/58-67 90-100 PHYSICAL EXAM GENERAL: The patient is awake, alert, and fully oriented, in no acute distress. HEAD: Normal with no signs of trauma. EYES: PERRL, extraocular movements intact, sclera anicteric, conjunctiva clear. ENT: Ears normal, nares patent, oropharynx clear without exudates, moist mucous membranes. NECK: Trachea midline, full range of motion, supple. LUNGS: Breath sounds equal, clear to auscultation bilaterally, no wheezes, no crackles, no accessory muscle use. HEART: Regular rate and rhythm, S1, S2 without murmur, rub or gallop. ABDOMEN: Soft, nontender, nondistended, normoactive bowel sounds, no guarding, no rebound, no hepatosplenomegaly, no masses. EXTREMITIES: 2+ pulses, warm, well-perfused, no edema. NEUROLOGICAL: Cranial nerves II through XII grossly intact. Normal speech, gait not observed. PSYCH: Normal mood, normal affect. SKIN: Warm, dry, normal turgor, no rashes or lesions noted. LABS Laboratory Results - last 24 hr 04/21/20 04/23/20 04/24/20 07:17 21:20 05:53 POC Glucometer 131 72 Hep A IgM Ab Confirm Negative Hepatitis A Ab Total Negative Hep Bs Antigen Negative Hep Bs Antibody Non reactive Hep B Core Total Ab Negative Hep B Core IgM Ab Negative Hepatitis Be Antibody Negative Hepatitis Be Antigen Negative 04/24/20 11:08 POC Glucometer 155 Hep A IgM Ab Confirm Hepatitis A Ab Total Hep Bs Antigen Hep Bs Antibody Hep B Core Total Ab Hep B Core IgM Ab Hepatitis Be Antibody Hepatitis Be Antigen HOSPITAL COURSE: 64 year old lady with a Mhx of Left sided breast CA (s/p Lumpectomy, rads, chemo-04/2014), HTN, HLD, Anemia. She presents to the ED on 04/19/20 due to increasing shortness of breath, fatigue, loss of appetite, weight loss (7lb 1 mos), abdominal pain and back pain w/ associated LE numbness over the last 1.[address] showed Multiple small rounded densities lung bases with mostly subpleural/peripheral distribution, which can be seen with viral infection but cannot exclude alternative possibility of metastases. 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 While Abdomen/Pelvis CT scan showed Innumerable hypodense liver masses, some with rim enhancement, suspicious for metastases. Probable osteoblastic metastases spine and pelvis. 2.1 cm right ovarian cyst (advise ultrasound followup). small ascites. Ultrasound Abdomen confirmed Multiple heterogeneous liver masses. Biopsy of liver mass confirmed adenocarcinoma consistent with metastatic breast cancer. Ocologist and neurologist were consulted. options moving forward including CDK inhibitors with AI (oral chemo) and possible radiation to her lumbar spine for relief were discussed. Abx were changed to PO augmentin and pain medications were adjusted to avoid constipations. Pt had BM. and was clear ed for discharge Date of Admission:04/19/20 Date of Discharge: 04/24/20 Minutes to complete discharge: 35 Discharge Summary Problems reviewed: Yes Reason For Visit: PRIMARY MALIGNANT NEOPLASM OF BREAST WITH METASTAS Current Active Problems COVID-19 (Acute) DVT prophylaxis (Acute) Elevated liver enzymes (Acute) Fatigue (Acute) Liver lesion (Acute) Lower extremity weakness (Acute) Pneumonia (Acute) Weakness (Acute) Condition: Improved - Instructions Diet, Activity, Other Instructions: You were admitted because you had shortness of breath, fatigue along with back pain and abdominal pain. Chest CT showed Multiple small rounded densities lung bases with mostly subpleural/peripheral distribution, which can be seen with viral infection but cannot exclude alternative possibility of metastases. Pro bable osteoblastic bone metastases thoracic spine, manubrium, and at least one right rib. While Abdomen/Pelvis CT scan showed Innumerable hypodense liver masses, some with rim enhancement, suspicious for metastases. Probable osteoblastic metastases spine and pelvis. 2.1 cm right ovarian cyst (advise ultrasound followup). small ascites. Ultrasound Abdomen confirmed Multiple heterogeneous liver masses. Biopsy of liver mass confirmed adenocarcinoma consistent with metastatic breast cancer. Ocologist and neurologist were consulted on your case. options moving forward including CDK inhibitors with AI (oral chemo) and possible radiation to the lumbar spine for relief were discussed with you by oncologist. You need to start taking the following new medications: 1. Acetaminophen 1000mg every 6 hours as needed for mild pain (1-5) 2. Tramadol 50mg three times daily for moderate/severe pain (6-10). 3. Gabapentin 400mg bid 4. Augmentin 875 twice daily Please, continue taking the rest of your home medications as instructed Please follow up with your primary care physician, if you do not have one you can come to our clinic. . Please follow up with your oncologist to continue work up and start treatment for your current condition Call 911 or Return to the Emergency Department if you have worsening of symptoms. Referrals: Miguelito Negron MD [Primary Care Provider] - Disposition: [facility]ILITY - Home Medications Comprehensive Discharge Medication List: Ambulatory Orders Acetaminophen [Tylenol .Extra-Strength -] 1,000 mg PO Q6H PRN tablet 04/24/20 Amlodipine Besylate [Norvasc -] 5 mg PO DAILY tablet 04/24/20 Amox-Tr/K Cl [Augmentin 875-125mg Tablet -] 1 tab PO BID@0800,1730 tablet 04/24/20 Tamoxifen Citrate 20 mg PO DAILY tablet 04/24/20 traMADol HCL [Ultram -] 50 mg PO Q8H PRN tablet 04/24/20 This patient is new to me today: Yes Date on this admission: 04/25/20 Emergency Visit: Yes ED Registration Date: 04/19/20 Care time: The patient presented to the Emergency Department on the above date and was hospitalized for further evaluation of their emergent condition. Critical Care patient: No - Discharge Referral Referred to [facility] No
[2020-04-24] MEDS: AMOX TR/POT CLAV 875MG/125MG TABLETS (FP) PO SCH (16:46)
[2020-04-25] MEDS: ACETAMINOPHEN 500 MG TABLET (FP) PO PRN ×2 (02:34→12:55)
[2020-04-25] MEDS: traMADol HCL 50 MG TABLET PO PRN ×3 (06:08→19:47)
[2020-04-25] MEDS: AMOX TR/POT CLAV 875MG/125MG TABLETS (FP) PO SCH ×2 (08:55→16:58)
[2020-04-25] MEDS ORDERED: PT OWN MED DRAWER 7, Y5N ONE ×2 (09:33→20:05)
[2020-04-25] MEDS: GABAPENTIN 400 MG CAPSULE PO SCH ×2 (10:06→21:02)
[2020-04-25] MEDS: ENOXAPARIN NA (PORCINE) 40 MG/0.4 ML DISP.SYRIN SQ SCH (10:08)
[2020-04-25] MEDS: amLODIPine BESYLATE 5 MG TABLET (FP) PO SCH (10:08)
[2020-04-25] MEDS: TAMOXIFEN CITRATE 10 MG TABLET PO SCH (10:08)
--- NOTE | 2020-04-25 15:30 | PN ---
Progress Note, Physician Chief Complaint: Denies complaints History of Present Illness: 64 year old female with a Mhx of Left sided breast CA (s/p Lumpectomy, rads, chemo-04/2014), HTN, HLD, Anemia. She presents to the ED on 04/19/20 due to increasing shortness of breath, fatigue, loss of appetite, weight loss (7lb 1 mos), abdominal pain and back pain w/ associated LE numbness over the last 1.5 months. - Current Medication List Current Medications: Active Medications Acetaminophen (Tylenol -) 1,000 mg PO Q6H PRN PRN Reason: FEVER Last Admin: 04/25/20 12:55 Dose: 1,000 mg Documented by: Amlodipine Besylate (Norvasc -) 5 mg PO DAILY [facility] Last Admin: 04/25/20 10:08 Dose: 5 mg Documented by: Amoxicillin/Clavulanate Potassium (Augmentin - 875mg Tablet) 1 tab PO BID@0800,1730 [facility] Last Admin: 04/25/20 08:55 Dose: 1 tab Documented by: Enoxaparin Sodium (Lovenox -) 40 mg SQ DAILY [facility] Last Admin: 04/25/20 10:08 Dose: 40 mg Documented by: Gabapentin (Neurontin -) 400 mg PO BID [facility] Last Admin: 04/25/20 10:06 Dose: 400 mg Documented by: Tamoxifen Citrate (Tamoxifen Citrate) 20 mg PO DAILY [facility] Last Admin: 04/25/20 10:08 Dose: 20 mg Documented by: Tramadol HCl (Ultram -) 50 mg PO Q8H PRN PRN Reason: PAIN LEVEL 6-10 Last Admin: 04/25/20 10:07 Dose: 50 mg Documented by: - Objective Vital Signs: Vital Signs Temperature 98.5 F 04/25/20 14:23 Pulse Rate 97 H 04/25/20 14:23 Respiratory Rate 20 04/25/20 14:23 Blood Pressure 108/59 L 04/25/20 14:23 O2 Sat by Pulse Oximetry (%) 95 04/25/20 04:00 Constitutional: Yes: Well Nourished, No Distress, Calm Eyes: Yes: WNL, Conjunctiva Clear, EOM Intact HENT: Yes: WNL, Atraumatic, Normocephalic Neck: Yes: WNL, Supple, Trachea Midline Cardiovascular: Yes: WNL, Regular Rate and Rhythm, Varicosities Respiratory: Yes: WNL, Regular, CTA Bilaterally Gastrointestinal: Yes: WNL, Normal Bowel Sounds, Soft Extremities: Yes: WNL Edema: No Peripheral Pulses WNL: Yes Integumentary: Yes: WNL Neurological: Yes: WNL, Alert, Oriented ...Motor Strength: WNL Psychiatric: Yes: WNL, Alert, Oriented Labs: CBC, BMP 04/23/20 07:36 04/23/20 07:36 INR, PTT INR 1.24 (0.83-1.09) H 04/23/20 07:36 Impression/Plan Impression/Plan: 64 year old female with a Mhx of Left sided breast CA (s/p Lumpectomy, rads, chemo-04/2014), HTN, HLD, Anemia. She presents to the ED on 04/19/20 due to increasing shortness of breath, fatigue, loss of appetite, weight loss (7lb 1 mos), abdominal pain and back pain w/ associated LE numbness over the last 1.5 months. # Metastatic Breast CA Breast Ca, RT 2013 liver mets confirmed by pathology report Continue tamoxifen Off Oxygen, sat>95% had BM, tolerated diet Pneumonia, no fever last 48H. Completed antibiotics taper pain meds due to opioid induced constipation, had BM yesterday Encourage incentive spirometer Radiation Neuropathy (c/w Gabapentin 400mg BID) L Breast Ca s/p lumpectomy and RT in 2014 HTN- blood pressure stable on norvasc HLD DVT prophylaxis- SQ lovenox Discharge planning for outpatient follow up with PT, HemOnc and PET scan with PO chemo Appealing discharge, wants rehab placement Visit type - Emergency Visit Emergency Visit: Yes ED Registration Date: 04/19/20 Care time: The patient presented to the Emergency Department on the above date and was hospitalized for further evaluation of their emergent condition. - New Patient This patient is new to me today: Yes Date on this admission: 04/25/20 - Critical Care Critical Care patient: No - Discharge Referral Referred to [facility] No
[2020-04-26] MEDS: ACETAMINOPHEN 500 MG TABLET (FP) PO PRN ×3 (04:02→20:39)
[2020-04-26] MEDS: AMOX TR/POT CLAV 875MG/125MG TABLETS (FP) PO SCH ×2 (08:38→17:17)
[2020-04-26] MEDS: ENOXAPARIN NA (PORCINE) 40 MG/0.4 ML DISP.SYRIN SQ SCH (09:52)
[2020-04-26] MEDS: amLODIPine BESYLATE 5 MG TABLET (FP) PO SCH (09:53)
[2020-04-26] MEDS: GABAPENTIN 400 MG CAPSULE PO SCH ×2 (09:53→21:12)
[2020-04-26] MEDS: TAMOXIFEN CITRATE 10 MG TABLET PO SCH (09:54)
--- NOTE | 2020-04-26 14:31 | PN ---
Progress Note, Physician Chief Complaint: Denies complaints History of Present Illness: 64 year old female with a PMHx notable for Left sided breast CA (s/p Lumpectomy, rads, chemo-04/2014), HTN, HLD, Anemia. She presents to the ED on 04/19/20 due to increasing shortness of breath, fatigue, loss of appetite, weight loss (7lb 1 mos), abdominal pain and back pain with associated LE numbness over the last 1.5 months. - Current Medication List Current Medications: Active Medications Acetaminophen (Tylenol -) 1,000 mg PO Q6H PRN PRN Reason: FEVER Last Admin: 04/26/20 13:40 Dose: 1,000 mg Documented by: Amlodipine Besylate (Norvasc -) 5 mg PO DAILY [facility] Last Admin: 04/26/20 09:53 Dose: 5 mg Documented by: Amoxicillin/Clavulanate Potassium (Augmentin - 875mg Tablet) 1 tab PO BID@0800,1730 [facility] Last Admin: 04/26/20 08:38 Dose: 1 tab Documented by: Enoxaparin Sodium (Lovenox -) 40 mg SQ DAILY [facility] Last Admin: 04/26/20 09:52 Dose: 40 mg Documented by: Gabapentin (Neurontin -) 400 mg PO BID [facility] Last Admin: 04/26/20 09:53 Dose: 400 mg Documented by: Tamoxifen Citrate (Tamoxifen Citrate) 20 mg PO DAILY [facility] Last Admin: 04/26/20 09:54 Dose: 20 mg Documented by: Tramadol HCl (Ultram -) 50 mg PO Q8H PRN PRN Reason: PAIN LEVEL 6-10 Last Admin: 04/25/20 19:47 Dose: 50 mg Documented by: - Objective Vital Signs: Vital Signs Temperature 98.8 F 04/26/20 14:03 Pulse Rate 75 04/26/20 14:03 Respiratory Rate 20 04/26/20 14:03 Blood Pressure 108/55 L 04/26/20 14:03 O2 Sat by Pulse Oximetry (%) 93 L 04/26/20 09:00 Constitutional: Yes: Well Nourished, No Distress, Calm Eyes: Yes: WNL, Conjunctiva Clear, EOM Intact HENT: Yes: WNL, Atraumatic, Normocephalic Neck: Yes: WNL, Supple, Trachea Midline Cardiovascular: Yes: WNL, Regular Rate and Rhythm Respiratory: Yes: WNL, Regular, CTA Bilaterally Gastrointestinal: Yes: WNL, Normal Bowel Sounds, Soft Musculoskeletal: Yes: WNL, Muscle Weakness Extremities: Yes: WNL Edema: No Peripheral Pulses WNL: Yes Integumentary: Yes: WNL Neurological: Yes: WNL, Alert, Oriented ...Motor Strength: WNL Psychiatric: Yes: WNL, Alert, Oriented Labs: CBC, BMP 04/23/20 07:36 04/23/20 07:36 INR, PTT INR 1.24 (0.83-1.09) H 04/23/20 07:36 Impression/Plan Impression/Plan: 64 year old female with a Mhx of Left sided breast CA (s/p Lumpectomy, rads, chemo-04/2014), HTN, HLD, Anemia. She presented to the ED on 04/19/20 due to increasing shortness of breath, fatigue, loss of appetite, weight loss (7lb 1 mos), abdominal pain and back pain with associated LE numbness over the last 1.5 months. # Metastatic Breast CA Breast Ca, RT 2013 liver mets confirmed by pathology report Continue tamoxifen Off Oxygen, sat>95% had BM, tolerated diet Pneumonia, Completed antibiotics Remains afebrile taper pain meds due to opioid induced constipation, had BM yesterday Encourage incentive spirometer Radiation Neuropathy (c/w Gabapentin 400mg BID) L Breast Ca s/p lumpectomy and RT in 2014 HTN- blood pressure stable on norvasc HLD- low fat diet DVT prophylaxis- SQ lovenox Discharge planning for outpatient follow up with PT, HemOnc and PET scan with PO chemo Appealing discharge with [facility] rehab placement Visit type - Emergency Visit Emergency Visit: Yes ED Registration Date: 04/19/20 Care time: The patient presented to the Emergency Department on the above date a nd was hospitalized for further evaluation of their emergent condition. - New Patient This patient is new to me today: No - Critical Care Critical Care patient: No - Discharge Referral Referred to [facility] Med [facility] No
[2020-04-26] MEDS ORDERED: PT OWN MED DRAWER 7, Y5N ONE (20:38)
[2020-04-27] MEDS: ACETAMINOPHEN 500 MG TABLET (FP) PO PRN ×3 (03:42→16:40)
[2020-04-27] MEDS: AMOX TR/POT CLAV 875MG/125MG TABLETS (FP) PO SCH (08:40)
[2020-04-27] MEDS ORDERED: PT OWN MED DRAWER 7, Y5N ONE ×2 (09:03→21:26)
[2020-04-27] MEDS: GABAPENTIN 400 MG CAPSULE PO SCH ×2 (09:09→21:35)
[2020-04-27] MEDS: amLODIPine BESYLATE 5 MG TABLET (FP) PO SCH (09:09)
[2020-04-27] MEDS: TAMOXIFEN CITRATE 10 MG TABLET PO SCH (09:09)
[2020-04-27] MEDS: ENOXAPARIN NA (PORCINE) 40 MG/0.4 ML DISP.SYRIN SQ SCH (09:09)
--- NOTE | 2020-04-27 11:04 | PN ---
Physical Exam: SUBJECTIVE: Patient seen and examined OBJECTIVE: Vital Signs Period Temp Pulse Resp BP Sys/Vargas Pulse Ox Last 24 Hr 98.1 F-98.8 F 75-107 20-20 105-131/55-72 92-99 GENERAL: The patient is awake, alert, and fully oriented, in no acute distress. HEAD: Normal with no signs of trauma. EYES: PERRL, extraocular movements intact, sclera anicteric, conjunctiva clear. ENT: Ears normal, nares patent, oropharynx clear without exudates, moist mucous membranes. NECK: Trachea midline, full range of motion, supple. LUNGS: Breath sounds equal, clear to auscultation bilaterally, no wheezes, no crackles, no accessory muscle use. HEART: Regular rate and rhythm, S1, S2 without murmur, rub or gallop. ABDOMEN: Soft, nontender, nondistended, normoactive bowel sounds, no guarding, no rebound, no hepatosplenomegaly, no masses. EXTREMITIES: 2+ pulses, warm, well-perfused, no edema. NEUROLOGICAL: Cranial nerves II through XII grossly intact. Normal speech, gait not observed. PSYCH: Normal mood, normal affect. SKIN: Warm, dry, normal turgor, no rashes or lesions noted. Laboratory Results - last 24 hr 04/26/20 12:29 POC Glucometer 116 Active Medications Generic Name Dose Route Start Last Admin Trade Name Freq PRN Reason Stop Dose Admin Acetaminophen 1,000 mg 04/23/20 16:04 04/27/20 10:42 Tylenol - PO 1,000 mg Q6H PRN Administration FEVER Amlodipine Besylate 5 mg 04/19/20 10:00 04/27/20 09:09 Norvasc - PO 5 mg DAILY [facility] Administration Amoxicillin/Clavulanate Potassium 1 tab 04/24/20 17:30 04/27/20 08:40 Augmentin - 875mg Tablet PO 1 tab BID@0800,1730 [facility] Administration Enoxaparin Sodium 40 mg 04/19/20 10:00 04/27/20 09:09 Lovenox - SQ 40 mg DAILY [facility] Administration Gabapentin 400 mg 04/19/20 10:15 04/27/20 09:09 Neurontin - PO 400 mg BID [facility] Administration Tamoxifen Citrate 20 mg 04/19/20 10:00 04/27/20 09:09 Tamoxifen Citrate PO 20 mg DAILY [facility] Administration Tramadol HCl 50 mg 04/24/20 14:12 04/25/20 19:47 Ultram - PO 50 mg Q8H PRN Administration PAIN LEVEL 6-10 ASSESSMENT/PLAN: 64 year old female with a Mhx of Left sided breast CA (s/p Lumpectomy, rads, chemo-04/2014), HTN, HLD, Anemia. She presented to the ED on 04/19/20 due to increasing shortness of breath, fatigue, loss of appetite, weight loss (7lb 1 mos), abdominal pain and back pain with associated LE numbness over the last 1.5 months. # Metastatic Breast CA Breast Ca, RT 2013 liver mets confirmed by pathology report Off Oxygen, sat>95% had BM, tolerated diet Pneumonia, no fever last 48H. deescalate Abx taper pain meds due to opioid induced constipation, had BM yesterday Encourage incentive spirometer Radiation Neuropathy (c/w Gabapentin 400mg BID) L Breast Ca s/p lumpectomy and RT in 2014 HTN HLD DVT prophylaxis Discharge planning for outpatient follow up with PT, HemOnc and PET scan with PO chemo Visit type - Emergency Visit Emergency Visit: Yes ED Registration Date: 04/19/20 Care time: The patient presented to the Emergency Department on the above date and was hospitalized for further evaluation of their emergent condition. - New Patient This patient is new to me today: Yes Date on this admission: 04/27/20 - Critical Care Critical Care patient: No - Discharge Referral Referred to [facility] Med [facility] No
[2020-04-27] MEDS: traMADol HCL 50 MG TABLET PO PRN (20:27)
[2020-04-28] MEDS: ACETAMINOPHEN 500 MG TABLET (FP) PO PRN ×3 (00:05→14:27)
[2020-04-28] MEDS: traMADol HCL 50 MG TABLET PO PRN ×2 (04:54→14:26)
[2020-04-28] MEDS ORDERED: PT OWN MED DRAWER 7, Y5N ONE (09:44)
[2020-04-28] MEDS: TAMOXIFEN CITRATE 10 MG TABLET PO SCH (09:48)
[2020-04-28] MEDS: GABAPENTIN 400 MG CAPSULE PO SCH (09:48)
[2020-04-28] MEDS: ENOXAPARIN NA (PORCINE) 40 MG/0.4 ML DISP.SYRIN SQ SCH (09:48)
[2020-04-28] MEDS: amLODIPine BESYLATE 5 MG TABLET (FP) PO SCH (09:48)
--- NOTE | 2020-04-28 13:50 | PN ---
Physical Exam: SUBJECTIVE: Patient seen and examined. denies any pain, malaise or shortness of breath. OBJECTIVE: 64 year old female with a PMHx notable for Left sided breast CA (s/p Lumpectomy, rads, chemo-04/2014), HTN, HLD, Anemia. She presents to the ED on 04/19/20 due to increasing shortness of breath, fatigue, loss of appetite, weight loss (7lb 1 mos), abdominal pain and back pain with associated LE numbness over the last 1.5 months. Vital Signs Period Temp Pulse Resp BP Sys/Vargas Pulse Ox Last 24 Hr 98.3 F-98.7 F 94-107 18-20 106-126/54-65 92-100 GENERAL: The patient is awake, alert, and fully oriented, in no acute distress. HEAD: Normal with no signs of trauma. EYES: PERRL, extraocular movements intact, sclera anicteric, conjunctiva clear. No ptosis. ENT: Ears normal, nares patent, oropharynx clear without exudates, moist mucous membranes. NECK: Trachea midline, full range of motion, supple. ABDOMEN: Soft, nontender, nondistended, normoactive bowel sounds EXTREMITIES: no edema. NEUROLOGICAL: Normal speech, gait not observed. PSYCH: Normal mood, normal affect. SKIN: Warm, dry, normal turgor, no rashes or lesions noted Active Medications Generic Name Dose Route Start Last Admin Trade Name Freq PRN Reason Stop Dose Admin Acetaminophen 1,000 mg 04/23/20 16:04 04/28/20 08:58 Tylenol - PO 1,000 mg Q6H PRN Administration FEVER Amlodipine Besylate 5 mg 04/19/20 10:00 04/28/20 09:48 Norvasc - PO 5 mg DAILY [facility] Administration Enoxaparin Sodium 40 mg 04/19/20 10:00 04/28/20 09:48 Lovenox - SQ 40 mg DAILY [facility] Administration Gabapentin 400 mg 04/19/20 10:15 04/28/20 09:48 Neurontin - PO 400 mg BID [facility]FFANY Administration Tamoxifen Citrate 20 mg 04/19/20 10:00 04/28/20 09:48 Tamoxifen Citrate PO 20 mg DAILY [facility] Administration Tramadol HCl 50 mg 04/27/20 18:04 04/28/20 04:54 Ultram - PO 50 mg Q8H PRN Administration PAIN LEVEL 6-10 ASSESSMENT/PLAN: Discharge planning for outpatient follow up with PT, HemOnc and PET scan with PO chemo patient for rehab at [facility] Problem List - Problems (1) Liver lesion Code(s): K76.9 - LIVER DISEASE, UNSPECIFIED (2) Fatigue Code(s): R53.83 - OTHER FATIGUE (3) Weakness Code(s): R53.1 - WEAKNESS (4) COVID-19 Code(s): U07.1 - COVID POSITIVE (5) Breast cancer, left breast Code(s): C50.912 - MALIGNANT NEOPLASM OF UNSPECIFIED SITE OF LEFT FEMALE BREAST (6) Elevated liver enzymes Code(s): R74.8 - ABNORMAL LEVELS OF OTHER SERUM ENZYMES (7) Lower extremity weakness Code(s): R29.898 - OTH SYMPTOMS AND SIGNS INVOLVING THE MUSCULOSKELETAL SYSTEM (8) DVT prophylaxis Code(s): Z29.9 - ENCOUNTER FOR PROPHYLACTIC MEASURES, UNSPECIFIED Visit type - Emergency Visit Emergency Visit: Yes ED Registration Date: 04/19/20 Care time: The patient presented to the Emergency Department on the above date and was hospitalized for further evaluation of their emergent condition. - New Patient This patient is new to me today: No - Critical Care Critical Care patient: No - Discharge Referral Referred to [facility] Med [facility].C[facility] No
[2020-04-28 15:11] VITALS: BP 127/70; PULSE 102; TEMP 98.6
== END 2020-04-28 15:15 | DRG 281 ==
LOC: JER 20:40 → SUPCPDRO 20:40 → JERBED 04-19 02:29 → J5S 04-19 15:24
PROVIDERS: ADMIT Internal Medicine; ATTEND Nurse Practitioner Family
PROC: 0FB03ZX Excision of Liver, Percutaneous Approach, Diagnostic (ICD-10-PCS; principal; 2020-04-21)
DX: C78.7 Secondary malignant neoplasm of liver and intrahepatic bile duct (principal); R53.83 Other fatigue; R63.0 Anorexia; R63.4 Abnormal weight loss; R06.02 Shortness of breath; G62.9 Polyneuropathy, unspecified; M54.9 Dorsalgia, unspecified; K59.03 Drug induced constipation; G89.3 Neoplasm related pain (acute) (chronic); J98.11 Atelectasis; D48.0 Neoplasm of uncertain behavior of bone and articular cartilage; J18.9 Pneumonia, unspecified organism; G62.82 Radiation-induced polyneuropathy; C50.912 Malignant neoplasm of unspecified site of left female breast; R64 Cachexia; R18.8 Other ascites; I10 Essential (primary) hypertension; E78.5 Hyperlipidemia, unspecified; R53.1 Weakness; N83.201 Unspecified ovarian cyst, right side; Z68.28 Body mass index [BMI] 28.0-28.9, adult
CPT/HCPCS: 36415; 71045-TC-FY; 71275-TC; 72131-TC; 74177-TC; 76705-TC; 76942-TC; 80053; 80074; 81003; 82550; 82553; 82607; 82728; 82962; 83036; 83615; 83690; 83735; 83825; 83880; 84100; 84484; 85025; 85379; 85610; 85730; 86038; 86140; 86704; 86706; 86707; 86708; 86709; 86780; 86850; 86900; 86901; 87040; 87086; 87340; 87899; 88305-TC; 93005; 93010; 97116-GP; 97162-GP; 99285-25; J0131; Q9967; U0003